=== PATIENT | male | born 1950 | race Caucasian/White ===

== ENCOUNTER 2019-05-21 12:24 | Outpatient (CLI) | payer MEDICARE, SELFPAY ==
--- NOTE | ~2019-05-21 | CT_ITS ---
EXAMINATION: CT abdomen pelvis wo con DATE: 05/21/2019 13:08 INDICATION: Left abdominal pain. TECHNIQUE: Computed tomography (CT) of the abdomen and pelvis was performed without intravenous contr ast. Automated exposure control and iterative reconstruction technique were employed. The dose-length product was 947.59 mGy-cm. COMPARISON: CT abdomen and pelvis 04/01/2018, 07/13/2010 FINDINGS: The visualized portions of the lung bases demonstrate mild atelectasis. No pleural effusion . The heart size is normal. No pericardial effusion. There is diffuse hepatic steatosis. The gallblad haleigh, spleen, pancreas, adrenal glands, and kidneys are normal. There is no urolithiasis. There are bi lateral inguinal hernias containing fat. There are changes of prostatectomy and pelvic lymph node dis section. There is diverticulosis of the colon without evidence of diverticulitis. There are no dilate d loops of bowel. The appendix is normal. There is no free intraperitoneal fluid. There is mild perip ortal and left para-aortic lymphadenopathy. For example, a left para-aortic lymph node measures 15 x 11 mm. There are chronic bilateral L5 pars defects. There is 4 mm anterolisthesis of L5 on S1. There is moderate lumbar spondylosis. There are bridging endplate osteophytes at multiple levels in the tho racic spine, consistent with diffuse idiopathic skeletal hyperostosis (DISH). IMPRESSION: 1. Mild periportal and retroperitoneal lymphadenopathy, stable from 07/13/2010, likely reactive. Reviewed, dictated and finalized at location A. [employer]PERATOR IMPRESSION: 1. Mild periportal and retroperitoneal lymphadenopathy, stable from 07/13/2010, l ikely reactive.
[2019-05-21 13:31] LABS: Basophils Percent Auto 0.6 % (0.2-1.2); Eosinophils Absolute Auto 0.6 K/mm3 (0-0.3); Eosinophils Percent Auto 8.6 % (0-4.4); Hematocrit 39.2 % (42.0-52.0); Hemoglobin 13.4 g/dL (14.0-18.0); Immature Granulocyte Absolute 0.02 K/mm3 (0.00-0.031); Immature Granulocyte Percent A 0.3 % (0-0.5); Lymphocytes Absolute Auto 1.38 K/mm3 (0.9-3.2); Lymphocytes Percent Auto 21.3 % (18.3-44.2); Mean Corpuscular HGB Conc 34.2 g/dl (32-36); Mean Corpuscular Hemoglobin 29.8 pg (26-34); Mean Corpuscular Volume 87.1 fl (80-100); Mean Platelet Volume 10.7 fl (7.4-10.4); Monocytes Absolute Auto 0.5 K/mm3 (0.1-0.6); Monocytes Percent Auto 8.2 % (2.6-8.5); Platelet Count Result 133 k/mm3 (150-375); Red Cell Distribution Width 12.5 % (11.5-14.5); White Blood Count 6.5 K/mm3 (4.5-10.0)
[2019-05-21 13:39] LABS: Add Urine Microscopic? YES; Appearance Urine Clear (Clear); Bilirubin Urine Negative (Negative); Blood Urine Negative (Negative); Color Urine Yellow (Yellow); Glucose Urine UA 3+ mg/dL (Negative); Ketones Urine Trace mg/dL (Negative); Leukocyte Esterase Ur Negative LEU/UL (Negative); Mucus Urine Rare /lpf; Nitrate Urine Negative (Negative); Protein Urine Negative (Negative); RBC Urine 0-2 /hpf (0-2); Specific Grav Ur 1.021 (1.001-1.035); Squamous Epithelial Cell Urine Rare /hpf (Few); Urobilinogen Urine Negative mg/dL (<2.0); WBC Urine 0-3 /hpf
[2019-05-21 13:59] LABS: Alanine Aminotransferase 52 U/L (4-50); Albumin Level 4.5 g/dL (3.5-5.1); Alkaline Phosphatase 56 U/L (38-126); Amylase 57 U/L (30-110); Aspartate Amino Transferase 44 U/L (17-59); Bilirubin,Total 0.8 mg/dL (0.2-1.3); Blood Urea Nitrogen 33 mg/dL (9-20); Calcium 9.8 mg/dL (8.4-10.2); Carbon Dioxide 22 mmol/L (22-30); Chloride 97 mmol/L (98-107); Estimated Glomerular Filt Rate 50; Glucose 244 mg/dL (75-110); Lipase 87 U/L (23-300); Potassium 4.6 mmol/L (3.4-5.0); Sodium 138 mmol/L (137-145)
[2019-05-21 14:10] LABS: Hemoglobin A1C 9.1 % (<5.7)
== END 2019-05-21 12:25 | disposition home or self-care (01) ==
DX: R10.9 Unspecified abdominal pain (principal); Z85.46 Personal history of malignant neoplasm of prostate; K57.90 Diverticulosis of intestine, part unspecified, without perforation or abscess without bleeding; E11.9 Type 2 diabetes mellitus without complications
CPT/HCPCS: 36415; 74176; 80053; 81001; 82150; 83036; 83690; 85025

== ENCOUNTER 2021-09-28 11:45 | Outpatient (CLI) | payer MEDICARE, SELFPAY ==
--- NOTE | ~2021-09-28 | XR_ITS ---
XR lumbar spine min 4V DATE: 09/28/2021 12:07 INDICATION: Left chronic numbness, skin anesthesia TECHNIQUE: AP, lateral, coned lateral lumbosacral views and bilateral oblique views COMPARISON: May 21, 2019 CT abdomen pelvis FINDINGS: Bilateral L5 pars interarticularis defects with grade 1 anterolisthesis at L5-S1. Diffuse idiopathic skeletal hyperostosis of the lower thoracic and lumbar spine. There is mild to mod erate degenerative disc disease of the lumbar spine, greatest at L1-2. The sacroiliac joints are intact, with degenerative change. Abdominal aortic calcification, without apparent aneurysm. Bilateral pelvic surgical clips likely due to prostatectomy and bilateral pelvic sidewall lymph node dissection. IMPRESSION: Bilateral L5 pars interarticular is defects with associated grade 1 anterolisthesis at L5 -S1 Multilevel degenerative disc disease Diffuse idiopathic skeletal hyperostosis of the thoracolumbar spine Probable prostatectomy and bilateral pelvic sidewall lymph node dissection Reviewed, dictated and finalized at location A. IMPRESSION: Bilateral L5 pars interarticular is defects with associated grade 1 anterolisthesis at L5-S1 Multilevel degenerative disc disease Diffuse idiopathic skeletal hyperostosis of the thoracolumbar spine Probable prostatectomy and bilateral pelvic sidewall lymph node dissection
--- NOTE | ~2021-09-28 | XR_ITS ---
EXAMINATION: XR sacrum coccyx min 2V DATE: 09/28/2021 12:07 INDICATION: Anesthesia of skin and left-sided numbness. TECHNIQUE: AP, angled AP and lateral views of the sacrum and coccyx were obtained. COMPARISON: None. FINDINGS: L5 spondylolysis with lucent pars interarticularis defects and 4 mm anterolisthesis L5 on S1. No frac ture. Mild to moderate lower lumbar spondylosis and mild to moderate bilateral hip osteoarthritis wit h anterosuperior predominant nonuniform joint space narrowing. Mild bilateral sacroiliac osteoarthrit is. Multiple surgical clips in the pelvis suggesting prior prostatectomy and bilateral pelvic lymph n ode dissection. IMPRESSION: 1. L5 spondylolysis with 4 mm anterolisthesis L5 on S1. Reviewed, dictated and finalized at location B.
== END 2021-09-28 11:46 | disposition home or self-care (01) ==
PROVIDERS: PCP Family Medicine; Visit Provider Physician Assistant Medical
DX: R20.0 Anesthesia of skin (principal); M47.896 Other spondylosis, lumbar region; M51.36 Other intervertebral disc degeneration, lumbar region
CPT/HCPCS: 72110; 72220

== ENCOUNTER 2021-12-26 14:18 | Outpatient (CLI) | payer MEDICARE, SELFPAY ==
--- NOTE | ~2021-12-26 | MR_ITS ---
EXAMINATION: MR lumbar spine wo con DATE: 12/26/2021 15:04 INDICATION: Back pain. TECHNIQUE: Magnetic resonance imaging (MRI) of the lumbar spine was performed without intravenous con trast. Sequences included sagittal T2-weighted FSE, sagittal T2-weighted FS FSE, sagittal T1-weighted FSE, and axial T2-weighted FSE. COMPARISON: Lumbar spine radiograph 09/28/2021 FINDINGS: There is 6 degrees dextrocurvature of lumbar spine. There are chronic bilateral L5 pars def ects. There is 3 mm retrolisthesis of L4 on L5 and 6 mm anterolisthesis of L5 on S1. There is mild ch ronic anterior wedging of T11 vertebral body. There is moderately decreased disc height at L4-L5 and mildly decreased disc height at L5-S1. The distal spinal cord signal intensity is normal. The conus m edullaris is at T12. The following disc levels are specifically discussed: L1-L2: The disc does not extend beyond the endplate margin. There is mild bilateral facet joint osteo arthritis. There is no neural foraminal stenosis. There is no central canal stenosis. L2-L3: The disc does not extend beyond the endplate margin. There is mild bilateral facet joint osteo arthritis. There is no neural foraminal stenosis. There is no central canal stenosis. L3-L4: The disc does not extend beyond the endplate margin. There is severe bilateral facet joint ost eoarthritis. There is no neural foraminal stenosis. There is no central canal stenosis. L4-L5: The disc is bulging and has an annular fissure. There is mild bilateral facet joint osteoarthr itis. There is moderate bilateral neural foraminal stenosis. There is mild central canal stenosis. L5-S1: The disc is bulging. There is severe bilateral facet joint osteoarthritis. There is moderate b ilateral neural foraminal stenosis. There is mild central canal stenosis. IMPRESSION: 1. Moderate lumbar spondylosis. 2. Chronic bilateral L5 pars defects with grade 1 anterolisthesis of L5 on S1. Reviewed, dictated and finalized at location A.
== END 2021-12-26 14:19 | disposition home or self-care (01) ==
PROVIDERS: PCP Family Medicine; Visit Provider Neurological Surgery
DX: M47.817 Spondylosis without myelopathy or radiculopathy, lumbosacral region (principal); M48.07 Spinal stenosis, lumbosacral region
CPT/HCPCS: 72148

== ENCOUNTER 2022-01-22 09:55 | Outpatient (CLI) | payer MEDICARE, SELFPAY ==
--- NOTE | 2022-01-22 11:30 | NEURO_ITS ---
Impression: # Complains of numbness/pain in upper extremities. 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 # Superimposed bilateral Carpal Tunnel Syndrome. 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 # Needle/EMG exam neurogenic in distal muscles; Superimposed cervical radiculopathy cannot be ruled out. Nerve Conduction Studies Anti Sensory Summary Table Stim Site NR Peak (ms) P-T Amp (?V) Site1 Site2 Delta-P (ms) Dist (cm) Luiz (m/s) Left Median Anti Sensory (2-3nd Digit) Wrist 3.6 29.8 Wrist 2-3nd Digit 3.6 14.0 39 Wrist 4.0 14.0 Wrist 2-3nd Digit 3.6 14.0 39 Right Median Anti Sensory (2-3nd Digit) Wrist 4.6 19.4 Wrist 2-3nd Digit 4.6 14.0 30 Wrist 4.4 27.9 Wrist 2-3nd Digit 4.6 14.0 30 Left Radial Anti Sensory (Base 1st Digit) Wrist 2.5 18.1 Wrist Base 1st Digit 2.5 0.0 Right Radial Anti Sensory (Base 1st Digit) Wrist 2.5 12.2 Wrist Base 1st Digit 2.5 0.0 Left Ulnar Anti Sensory (5th Digit) Wrist 3.5 18.0 Wrist 5th Digit 3.5 14.0 40 Right Ulnar Anti Sensory (5th Digit) Wrist 3.5 17.4 Wrist 5th Digit 3.5 14.0 40 Motor Summary Table Stim Site NR Onset (ms) O-P Amp (mV) Site1 Site2 Delta-0 (ms) Dist (cm) Luiz (m/s) Left Median Motor (Abd Poll Brev) Wrist 5.9 1.2 Elbow Wrist 8.2 30.0 37 Elbow 14.1 1.8 Right Median Motor (Abd Poll Brev) Wrist 5.3 1.2 Elbow Wrist 6.7 28.0 42 Elbow 12.0 0.9 Left Ulnar Motor (Abd Dig Minimi) Wrist 4.3 3.8 A Elbow Wrist 10.0 33.0 33 A Elbow 14.3 1.5 B Elbow Wrist 5.6 23.0 41 B Elbow 9.9 3.2 Right Ulnar Motor (Abd Dig Minimi) Wrist 4.2 5.1 A Elbow Wrist 8.3 31.0 37 A Elbow 12.5 3.3 B Elbow Wrist 4.6 21.0 46 B Elbow 8.8 3.3 F Wave Studies NR F-Lat (ms) L-R F-Lat (ms) Left Median (Mrkrs) (Abd Poll Brev) 37.63 1.05 Right Median (Mrkrs) (Abd Poll Brev) 36.58 1.05 Left Ulnar (Mrkrs) (Abd Dig Min) 35.68 0.44 Right Ulnar (Mrkrs) (Abd Dig Min) 36.13 0.44 EMG Side Muscle Nerve Root Ins Act Fibs Amp Dur Recrt Comment Right 1stDorInt Ulnar C8-T1 Nml Nml Incr Nml Reduced Right Ext Indicis Radial (Post Int) C7-8 Nml Nml Nml Nml Nml Right Ext Digitorum Radial (Post Int) C7-8 Nml Nml Incr Nml Reduced Right BrachioRad Radial C5-6 Nml Nml Nml Nml Nml Right PronatorTeres Median C6-7 Nml Nml Nml Nml Nml Right Abd Poll Brev Median C8-T1 Nml Nml Incr Nml Reduced Left 1stDorInt Ulnar C8-T1 Nml Nml Incr Nml Reduced Left Ext Indicis Radial (Post Int) C7-8 Nml Nml Nml Nml Nml Left Ext Digitorum Radial (Post Int) C7-8 Nml Nml Incr Nml Reduced Left BrachioRad Radial C5-6 Nml Nml Nml Nml Nml Left PronatorTeres Median C6-7 Nml Nml Nml Nml Nml Left Abd Poll Brev Median C8-T1 Nml Nml Incr Nml Reduced Right ABD Dig Min Ulnar C8-T1 Nml Nml Incr Nml Reduced Left ABD Dig Min Ulnar C8-T1 Nml Nml Incr Nml Reduced MTDD
== END 2022-01-22 09:56 | disposition home or self-care (01) ==
LOC: ANHNEURO 09:56
PROVIDERS: PCP Family Medicine; Visit Provider Neurological Surgery
DX: R20.2 Paresthesia of skin (principal); G56.03 Carpal tunnel syndrome, bilateral upper limbs; G56.23 Lesion of ulnar nerve, bilateral upper limbs; G62.9 Polyneuropathy, unspecified
CPT/HCPCS: 95886; 95911

== ENCOUNTER 2022-12-25 14:37 | Outpatient (CLI) | payer MEDICARE, SELFPAY ==
[2022-12-25 15:23] LABS: Anion Gap 13 mmol/L (8-16); Blood Urea Nitrogen 30 mg/dL (9-20); Calcium 9.6 mg/dL (8.4-10.2); Carbon Dioxide 20 mmol/L (22-30); Chloride 103 mmol/L (98-107); Estimated Glomerular Filt Rate 54; Glucose 228 mg/dL (65-110); Potassium 4.8 mmol/L (3.4-5.0); Sodium 136 mmol/L (137-145)
[2022-12-27 10:53] LABS: Beta-Hydroxybutyrate/Acetoacetate 0.18 mmol/L (0.02-0.27)
== END 2022-12-25 14:38 | disposition home or self-care (01) ==
LOC: ANHLAB 14:39
PROVIDERS: PCP Family Medicine; Visit Provider Family Medicine
DX: E87.29 Other acidosis (principal)
CPT/HCPCS: 36415; 80048; 82010

== ENCOUNTER 2023-01-09 08:09 | Outpatient (CLI) | payer MEDICARE, SELFPAY ==
[2023-01-09 08:43] LABS: Alveolar/Arterial O2 Gradient 27.4 mmHg; Base Excess ABG -2.6 mEq/l (+/-2.0); Fractional Inspired Oxygen 21 %; HCO3 ABG 21.9 mEq/l (22.0-26.0); Oxygen Content ABG 17.3 %vol (16.0-22.0); Oxygen Saturation ABG 95.6 % (95.0-100.0); Oxyhemoglobin 93.9 % THb (90.0-100.0); PCO2 ABG 36.8 mmHg (35.0-45.0); PO2 ABG 78.3 mmHg (80.0-100.0); PO2 FiO2 Ratio Arterial Blood 3.73 %; Total Hemoglobin 13.1 g/dL (12.0-18.0); pH ABG 7.392 (7.350-7.450)
[2023-01-09 08:44] LABS: Device ROOM AIR; Modified Allen's Test Pass; Site Drawn LEFT RADIAL
== END 2023-01-09 08:10 | disposition home or self-care (01) ==
LOC: ANHPFT 08:11
PROVIDERS: PCP Family Medicine; Visit Provider Family Medicine
DX: E87.29 Other acidosis (principal)
CPT/HCPCS: 36600; 82805

== ENCOUNTER 2023-03-03 13:12 | Emergency (ER) | payer MEDICARE, SELFPAY ==
[2023-03-03 13:36] VITALS: BP 139/86; PULSE 103; RESP 16; TEMP 37.1; O2SAT 99
--- NOTE | 2023-03-03 14:24 | ED.URI ---
HPI - URI/Sore Throat General Chief Complaint: Upper Respiratory Infection Stated Complaint: Sore Throat Time Seen by Provider: 03/03/23 14:24 Source: patient, family, RN notes reviewed and old records reviewed Mode of arrival: ambulatory Limitations: no limitations History of Present Illness HPI Narrative: 72 year old male accompanied by with complaints of sore throat and swelling to the anterior lateral aspects of bilateral jaws especially the right side with firmness of tissue noted since Friday morning with increased symptoms. Patient reports history of previous episode of similar symptoms but not as pronounced which resolved on its own. Patient reports that he quit taking Semaglutide 3 weeks ago due to nausea and vomiting, denies any history of thyroid problems. Patient does have some mild swelling under his tongue noted is able to swallow without difficulty and denies any shortness of breath. Right side of neck anterior lateral jaw region is larger than left. MD elicited complaint: sore throat and other (swelling with firm tissue to bilateral anterior lateral jaw areas.right greater than left) Onset (ago): day(s) (3) Pain scale (0-10): 2 Able to tolerate fluids by mouth: Yes Treatments prior to arrival: none Related Data Home Medications Medication Instructions Recorded Confirmed escitalopram oxalate 10 mg tablet 10 mg PO DAILY 09/28/21 03/03/23 Allergies Allergy/AdvReac Type Severity Reaction Status Date / Time diatrizoate meglumine Allergy Intermediate Unknown Verified 03/04/23 05:58 Contrast Media Allergy Unknown Hives / Uncoded 03/04/23 05:58 Red Face Review of Systems Review of Systems: CONSTITUTIONAL: Denies fever, chills, or sweats. EYES: Denies visual changes, redness, or discharge. ENT: Denies rhinorrhea, congestion,positive for sore throat, or otalgia.submandibular swelling bilaterally right greater than left CARDIOVASCULAR: Denies chest pain, palpitations, or edema. RESPIRATORY: Denies cough or dyspnea. GASTROINTESTINAL: Denies abdominal pain, nausea, vomiting, or diarrhea. GENITOURINARY: Denies dysuria or hematuria. SKIN: Denies rash or itching. MUSCULOSKELETAL: Denies back pain, joint pain, or myalgia. NEUROLOGIC: Denies headache, numbness, or weakness. PSYCHIATRIC: positive for history of anxiety or depression. All systems reviewed & are unremarkable except as noted in HPI and below PMFSH Past Medical History Medical History Degenerative disk disease Diabetes type 2, controlled Diverticulosis History of diverticulitis Hypertension Overweight (BMI 25.0-29.9) Paresthesia and pain of both upper extremities Saddle anesthesia Surgical History Surgical History History of carpal tunnel release Family History Family History Father Family history of diabetes mellitus in first degree relative Patient's father is Other Hypertension Social History Social History Smoking status: Former smoker Second hand tobacco smoke exposure: No Alcohol intake: current Drinks per week: 1 Alcohol use details: per week Substance use: never Substance use type: does not use Lack of Transportation: No Lack of Food: Never True Current Housing: I Have Housing Concerned About Future Housing: No Difficulty Paying Gas/Electric Bills: No Difficulty Paying for Meds: No Currently Unemployed: No Education: Associate Degree Difficulty w/ Childcare or Family Care: No Living arrangements: with family Gender identity (if verbalized by the patient): Male Sexual Orientation (if Verbalized by the Patient): Straight or Heterosexual Spiritual care concerns: No Agree to blood products: Yes Comments At time of signature, agree with nu
== END 2023-03-03 14:35 | disposition short-term general hospital (02) ==
PROVIDERS: Emergency Provider Registered Nurse; PCP Family Medicine
DX: R59.0 Localized enlarged lymph nodes (principal); E11.9 Type 2 diabetes mellitus without complications; I10 Essential (primary) hypertension; Z79.899 Other long term (current) drug therapy; Z87.891 Personal history of nicotine dependence
CPT/HCPCS: 87081; 87880; 99213; G0463

== ENCOUNTER 2023-03-04 05:26 | Emergency (ER) | payer MEDICARE, SELFPAY ==
[2023-03-04] VITALS (11 sets, daily range): BP systolic 147–179; BP diastolic 83–95; PULSE 84–92; RESP 16–20; TEMP 37.1; O2SAT 93–99
--- NOTE | ~2023-03-04 | CT_ITS ---
EXAMINATION: CT soft tissue neck wo con DATE: 03/04/2023 08:47 INDICATION: Right-sided neck swelling. Sore throat. TECHNIQUE: Computed tomography (CT) of the neck was performed without intravenous contrast. Automated exposure control and iterative reconstruction technique were employed. The dose-length product was 5 32.86 mGy-cm. COMPARISON: None FINDINGS: There is a lipoma in right sternocleidomastoid muscle. There is a multinodular goiter that extends into the superior mediastinum. There are calcifications in the palatine tonsils. No peritonsi llar abscess. There is fat stranding in the submandibular space. There is asymmetric enlargement of r ight submandibular gland. There is a 2 mm sialolith in the right anterior floor of mouth in the expec dean area of the duct for right submandibular gland. There are no pathologically enlarged lymph nodes. The mastoid air cells are normal. The paranasal sinuses are clear. There is moderate cervical spondy losis. IMPRESSION: 1. Sialadenitis involving right submandibular gland. 2 mm sialolith in the duct for right submandibul ar gland. Reviewed, dictated and finalized at location A. [employer] IMPRESSION: 1. Sialadenitis involving right submandibular gland. 2 mm sialolith in the duct for right submandibular gland.
--- NOTE | 2023-03-04 08:20 | ED.GENADULT ---
HPI - General Adult General Chief complaint: Unspecified Stated complaint: swelling to right side of neck Time Seen by Provider: 03/04/23 07:28 History of Present Illness HPI narrative: 72-year-old male presents to the emergency department for evaluation right throat swelling. Patient does wear CPAP at night time and feel that his CPAP became dislodged and he woke up with a sore throat. Patient states sometimes happen and cause uvular hydrops. patient noticed the right-sided neck swelling on Friday and it has continued to worsen. Patient presented to urgent care yesterday and he was referred to the emergency department. Related Data Home Medications Medication Instructions Recorded Confirmed escitalopram oxalate 10 mg tablet 10 mg PO DAILY 09/28/21 03/03/23 Allergies Allergy/AdvReac Type Severity Reaction Status Date / Time diatrizoate meglumine Allergy Intermediate Unknown Verified 03/04/23 05:58 Contrast Media Allergy Unknown Hives / Uncoded 03/04/23 05:58 Red Face Review of Systems Review of Systems: All systems reviewed & are unremarkable except as noted in HPI and below PMFSH Past Medical History Medical History Degenerative disk disease Diabetes type 2, controlled Diverticulosis History of diverticulitis Hypertension Overweight (BMI 25.0-29.9) Paresthesia and pain of both upper extremities Saddle anesthesia Surgical History Surgical History History of carpal tunnel release Family History Family History Father Family history of diabetes mellitus in first degree relative Patient's father is Other Hypertension Social History Social History Smoking status: Former smoker Second hand tobacco smoke exposure: No Alcohol intake: current Drinks per week: 1 Alcohol use details: per week Substance use: never Substance use type: does not use Lack of Transportation: No Lack of Food: Never True Current Housing: I Have Housing Concerned About Future Housing: No Difficulty Paying Gas/Electric Bills: No Difficulty Paying for Meds: No Currently Unemployed: No Education: Associate Degree Difficulty w/ Childcare or Family Care: No Living arrangements: with family Gender identity (if verbalized by the patient): Male Sexual Orientation (if Verbalized by the Patient): Straight or Heterosexual Spiritual care concerns: No Agree to blood products: Yes Exam Narrative: APPEARANCE: Well appearing, no pain, no distress, well-nourished. HEAD: normocephalic, atraumatic. EYES: PERRLA/EOMI, conjunctivae clear. NOSE: Normal no drainage EARS:TMS clear with good light reflex. THROAT: Pharynx clear, no exudate. Normal posterior pharynx some submandibular swelling NECK: Right sided lymphadenopathy and neck swelling. RESPIRATORY: Airway patent, respirations nonlabored. Clear to auscultation bilaterally, no rales, rhonchi, wheezing. CARDIOVASCULAR: Regular rate and rhythm without murmurs rubs or gallops. ABDOMINAL: Soft, nontender, nondistended, normal bowel sounds MUSCULOSKELETAL: Moves all extremities. Strength/ROM intact, No edema, No calf tenderness. NEURO: Alert. Cranial nerves II through XII intact. SKIN: Warm, dry. Normal Color Course Course Emergency Course: 72-year-old male presents emergency department for evaluation of some right-sided neck swelling. Patient is afebrile with no leukocytosis and a stable hemoglobin. CT did show evidence of sialadenitis. patient was updated on the treatment plan. Patient was started on antibiotics and provide follow-up with ENT. All questions and concerns were addressed patient was comfortable with plan for discharge and close follow-up. Vital Signs Vital signs: Vital Signs
[2023-03-04 08:21] LABS: Basophils Percent Auto 0.4 % (0.2-1.2); Eosinophils Absolute Auto 0.3 K/mm3 (0-0.3); Eosinophils Percent Auto 3.5 % (0-4.4); Hematocrit 35.9 % (42.0-52.0); Hemoglobin 12.3 g/dL (14.0-18.0); Immature Granulocyte Absolute 0.03 K/mm3 (0.00-0.031); Immature Granulocyte Percent A 0.3 % (0-0.5); Immature Platelet Fraction Pct 3.9 % (0.9-11.2); Lymphocytes Absolute Auto 1.33 K/mm3 (0.9-3.2); Lymphocytes Percent Auto 14.4 % (18.3-44.2); Mean Corpuscular HGB Conc 34.3 g/dl (32-36); Mean Corpuscular Hemoglobin 29.2 pg (26-34); Mean Corpuscular Volume 85.3 fl (80-100); Mean Platelet Volume 10.8 fl (7.4-10.4); Monocytes Absolute Auto 0.8 K/mm3 (0.1-0.6); Monocytes Percent Auto 8.5 % (2.6-8.5); Neutrophils Absolute Auto 6.8 K/mm3 (1.3-6.7); Neutrophils Percent Auto 72.9 % (45.5-73.1); Platelet Count Result 135 k/mm3 (150-375); Red Blood Count 4.21 M/mm3 (4.6-6.20); Red Cell Distribution Width 13.2 % (11.5-14.5); White Blood Count 9.3 K/mm3 (4.5-10.0)
[2023-03-04] MEDS: HYDROmorphone HCL INJ (*CRX) 1 MG/ML SYR 0.5 MG IV PUSH (08:25)
[2023-03-04 08:30] LABS: Lactic Acid Reflex 2.2 mmol/L (0.7-2.0)
[2023-03-04 08:32] LABS: Alanine Aminotransferase 31 U/L (6-50); Albumin Level 4.4 g/dL (3.5-5.1); Alkaline Phosphatase 57 U/L (38-126); Anion Gap 10 mmol/L (8-16); Aspartate Amino Transferase 27 U/L (17-59); Bilirubin,Total 1.3 mg/dL (0.2-1.3); Blood Urea Nitrogen 29 mg/dL (9-20); Calcium 9.7 mg/dL (8.4-10.2); Carbon Dioxide 26 mmol/L (22-30); Chloride 99 mmol/L (98-107); Estimated CRCL calculation 40 ml/min; Estimated Glomerular Filt Rate 46; Glucose 219 mg/dL (65-110); Sodium 135 mmol/L (137-145)
[2023-03-04 08:34] LABS: INR 1.1; Prothrombin Time 14.2 Seconds (11.1-14.7)
[2023-03-04 08:35] LABS: Partial Thromboplastin Time 32.5 SECONDS (22.3-36.8)
[2023-03-04 08:41] LABS: Strep Group A RT-PCR NOT DETECTED (Negative)
[2023-03-04 08:53] LABS: Influenza A QL RT-PCR Negative (Negative); Influenza B QL RT-PCR Negative (Negative); RSV RNA, RT-PCR Negative (Negative); SARS-CoV-2 RNA PCR Negative (Negative)
[2023-03-04] MEDS: SODIUM CHLORIDE 0.9% IV 1,000 ML 999 ML IV CONT (08:59)
[2023-03-04 11:14] LABS: Reflex Lactic Acid Yes or No Add Lactic
== END 2023-03-04 09:28 | disposition home or self-care (01) ==
PROVIDERS: Emergency Provider Emergency Medicine; PCP Family Medicine
DX: K11.20 Sialoadenitis, unspecified (principal); Z20.822 Contact with and (suspected) exposure to COVID-19; E11.9 Type 2 diabetes mellitus without complications; I10 Essential (primary) hypertension; G47.30 Sleep apnea, unspecified; Z87.891 Personal history of nicotine dependence; Z79.85 Long-term (current) use of injectable non-insulin antidiabetic drugs; Z79.4 Long term (current) use of insulin; Z79.84 Long term (current) use of oral hypoglycemic drugs
CPT/HCPCS: 36415; 70490; 80053; 83605; 85025; 85055; 85610; 85730; 87637; 87651; 96374; 96375; 99284; A9270; J1100; J1170; J7030

== ENCOUNTER 2023-09-16 11:30 | Emergency (ER) | payer MEDICARE, SELFPAY ==
--- NOTE | 2023-09-16 11:36 | ED.SKABFB ---
HPI - Skin/Abscess/Foreign Bdy General Chief complaint: Skin/Abscess/Foreign Body Stated complaint: INFECTION ON ABD S/P SURGERY Time Seen by Provider: 09/16/23 11:41 Source: patient, RN notes reviewed and old records reviewed Mode of arrival: ambulatory Limitations: no limitations History of Present Illness HPI narrative: 73-year-old male with history of diabetes, hypertension, status post abdominal surgery with LORNA drain placement in July presents with redness and tenderness to the abdomen, surgical site. Patient reports that he had surgery in May in [place]. Return to the local area in June had a surgery at [place]. Patient states he has had multiple drains in tubes in abdomen Patient also states he was concerned because his blood sugars were over 400 this morning. States the pain is getting more and more severe. Onset (ago): hour(s) Treatments prior to arrival: none Related Data Home Medications Medication Instructions Recorded Confirmed insulin lispro 100 unit/mL subcut 09/16/23 09/16/23 subcutaneous pen (Humalog KwikPen (U-100) Insulin) Allergies Allergy/AdvReac Type Severity Reaction Status Date / Time diatrizoate meglumine Allergy Intermediate Unknown Verified 09/16/23 11:37 Contrast Media Allergy Unknown Hives / Uncoded 09/16/23 11:37 Red Face Review of Systems Review of Systems: All systems reviewed & are unremarkable except as noted in HPI and below Constitutional: Constitutional: Reports no additional constitutional complaints Eyes: Eyes: Reports no additional eye complaints ENT: Reports system reviewed and no additional complaints, except as documented Cardiovascular: Cardiovascular: Reports no additional cardiovascular complaints, Denies chest pain and Denies dyspnea Respiratory: Respiratory: Reports no additional respiratory complaints, Denies chest congestion, Denies cough and Denies dyspnea Gastrointestinal: Gastrointestinal: Reports no additional gastrointestinal complaints, Denies abdominal pain, Denies nausea and Denies vomiting Musculoskeletal: Musculoskeletal: Reports no additional musculoskeletal complaints Integumentary/Breasts: Skin/Breast: Reports as per HPI Neurologic: Reports system reviewed and no additional complaints, except as documented Psychiatric: Psychiatric: Reports no additional psychiatric complaints Allergic/Immunologic: Allergic/Immunologic: Reports no additional allergic/immunologic complaints [facility] Past Medical History Medical History (Updated 09/16/23 @ 12:04 by Dionne Chan APRN) Abdominal abscess Abdominal mass Back pain Degenerative disk disease Diabetes type 2, controlled Diverticulosis History of diverticulitis Hypertension Overweight (BMI 25.0-29.9) Paresthesia and pain of both upper extremities Saddle anesthesia Surgical History Surgical History History of carpal tunnel release Family History Family History Father Family history of diabetes mellitus in first degree relative Patient's father is Other Hypertension Social History Social History Smoking status: Former smoker Second hand tobacco smoke exposure: No Alcohol intake: current Drinks per week: 1 Alcohol use details: per week Substance use: never Substance use type: does not use Lack of Transportation: No Lack of Food: Never True Current Housing: I Have Housing Concerned About Future Housing: No Difficulty Paying Gas/Electric Bills: No Difficulty Paying for Meds: No Currently Unemployed: No Education: Associate Degree Difficulty w/ Childcare or Family Care: No Living arrangements: with family Gender identity (if verbalized by the patient): Male Sexual Orientation (if Verbalized by the Patient): Straight or Heterosexual Spiritual care concerns
[2023-09-16 11:41] VITALS: BP 139/73; PULSE 84; RESP 16; TEMP 36.7; O2SAT 100
--- NOTE | 2023-09-16 12:31 | PC.NURSE ---
1219 Patient phoned in to the facility and reports he will be going to [facility] for further evaluation as that is where he had surgery.
== END 2023-09-16 11:57 | disposition left against medical advice (07) ==
PROVIDERS: Emergency Provider Nurse Practitioner; PCP Family Medicine
DX: T81.40XA Infection following a procedure, unspecified, initial encounter (principal); Z87.891 Personal history of nicotine dependence; E11.9 Type 2 diabetes mellitus without complications; Z79.4 Long term (current) use of insulin; I10 Essential (primary) hypertension
CPT/HCPCS: 99211; G0463

== ENCOUNTER 2023-10-01 10:11 | Outpatient (CLI) | payer MEDICARE, SELFPAY ==
--- NOTE | ~2023-10-01 | XR_ITS ---
EXAMINATION: XR hand RT min 3V DATE: 10/01/2023 10:32 INDICATION: Unilateral primary osteoarthritis of right first carpometacarpal joint. TECHNIQUE: 3 views of right hand were obtained. COMPARISON: None. FINDINGS: Bone alignment is normal. No fracture. There is severe osteoarthritis of first carpometacar pal joint and mild osteoarthritis of some of the metacarpophalangeal joints and interphalangeal joint s. There is moderate osteoarthritis of first interphalangeal joint and third-fifth distal interphalan geal joints. IMPRESSION: 1. Polyarticular osteoarthritis. Reviewed, dictated and finalized at location A.
== END 2023-10-01 10:12 | disposition home or self-care (01) ==
LOC: ANHIMG 10:17
PROVIDERS: PCP Family Medicine; Visit Provider Plastic Surgery
DX: M18.11 Unilateral primary osteoarthritis of first carpometacarpal joint, right hand (principal)
CPT/HCPCS: 73130

== ENCOUNTER 2024-03-23 13:08 | Outpatient (CLI) | payer MEDICARE, SELFPAY ==
--- NOTE | 2024-03-23 14:15 | NEURO_ITS ---
Impression: # Complains of numbness and weakness in right hand. Known diabetic. ? # Right ulnar neuropathy across the elbow. ? # Mildly abnormal Needle/EMG exam in right 1st DI and ADM. ? # Also has underlying neuropathy of axonal type. Nerve Conduction Studies Anti Sensory Summary Table ?Stim Site NR Peak (ms) P-T Amp (?V) Site1 Site2 Delta-P (ms) Dist (cm) Luiz (m/s) Right Median Anti Sensory (2-3nd Digit) Wrist ? 3.7 9.1 Wrist 2-3nd Digit 3.7 14.0 38 Wrist ? 3.7 11.4 Wrist 2-3nd Digit 3.7 14.0 38 Right Radial Anti Sensory (Base 1st Digit) Wrist ? 2.9 19.8 Wrist Base 1st Digit 2.9 0.0 Right Ulnar Anti Sensory (5th Digit) Wrist ? 3.1 19.8 Wrist 5th Digit 3.1 14.0 45 Motor Summary Table ?Stim Site NR Onset (ms) O-P Amp (mV) Site1 Site2 Delta-0 (ms) Dist (cm) Luiz (m/s) Right Median Motor (Abd Poll Brev) Wrist ? 4.0 1.4 Elbow Wrist 7.8 31.0 40 Elbow ? 11.8 1.2 Right Ulnar Motor (Abd Dig Minimi) Wrist ? 3.4 4.4 A Elbow Wrist 8.8 31.0 35 A Elbow ? 12.2 2.3 B Elbow Wrist 5.4 20.0 37 B Elbow ? 8.8 2.1 F Wave Studies ?NR F-Lat (ms) L-R F-Lat (ms) Right Median (Mrkrs) (Abd Poll Brev) ? 36.42 Right Ulnar (Mrkrs) (Abd Dig Min) ? 38.19 EMG ?Side Muscle Nerve Root Ins Act Fibs Amp Dur Recrt Comment Right 1stDorInt Ulnar C8-T1 Nml Nml Nml >12ms +2 Right Ext Indicis Radial (Post Int) C7-8 Nml Nml Nml Nml Nml Right Ext Digitorum Radial (Post Int) C7-8 Nml Nml Nml Nml Nml Right BrachioRad Radial C5-6 Nml Nml Nml Nml Nml Right PronatorTeres Median C6-7 Nml Nml Nml Nml Nml Right Abd Poll Brev Median C8-T1 Nml Nml Nml Nml Nml Right ABD Dig Min Ulnar C8-T1 Nml Nml Nml >12ms +1 MTDD
== END 2024-03-23 13:09 | disposition home or self-care (01) ==
LOC: ANHNEURO 13:09
PROVIDERS: PCP Family Medicine; Visit Provider Plastic Surgery
DX: G56.01 Carpal tunnel syndrome, right upper limb (principal); G56.21 Lesion of ulnar nerve, right upper limb; M18.11 Unilateral primary osteoarthritis of first carpometacarpal joint, right hand; R94.131 Abnormal electromyogram [EMG]
CPT/HCPCS: 95886; 95909

== ENCOUNTER 2024-07-17 08:29 | Emergency (ER) | payer MEDICARE, SELFPAY ==
[2024-07-17 08:51] VITALS: BP 154/76; PULSE 78; RESP 16; TEMP 36.1; O2SAT 99
--- NOTE | 2024-07-17 09:13 | ED.GENADULT ---
HPI - General Adult General Chief complaint: Skin/Abscess/Foreign Body Stated complaint: RASH Time Seen by Provider: 07/17/24 09:14 Source: patient Mode of arrival: ambulatory Limitations: no limitations History of Present Illness HPI narrative: 74-year-old male patient presents to the [facility] with complaints of a rash to bilateral upper extremities, back, trunk and legs bilateral thighs and crotch area. Patient states the rash started about a week ago. Patient states he has been putting some [id number]-[id number] hydrocortisone cream on it but has not had any relief. Denies taking any Benadryl or antihistamines since the rash started. Patient states he recently started a Medication for his lip area that was prescribed to him by his fiber optic technician for pre cancer treatment that will help his lips peel and to get rid of any precancer skin. Patient states he started this about 3 weeks ago. Patient denies coming in contact with any poison julia and denies working in the [employer] recently. Patient denies any new laundry detergents or soaps that he is aware of but states he needs to be checking with his . Related Data Home Medications ?Medication ?Instructions ?Recorded ?Confirmed ?Last Taken ?Type insulin lispro 100 unit/mL See Rx Instructions .Route .COMPLEX 09/16/23 02/19/24 Unknown History subcutaneous pen (Humalog KwikPen (U-100) Insulin) escitalopram oxalate 10 mg tablet 10 mg PO DAILY 09/23/23 02/19/24 Unknown History fluorouracil 5 % topical cream applic topical 07/17/24 Unknown History Allergies Allergy/AdvReac Type Severity Reaction Status Date / Time diatrizoate meglumine Allergy Intermediate Unknown Verified 07/17/24 08:55 gadobenic acid (From Allergy Intermediate Rash Verified 07/17/24 08:55 contrast - MRI) iohexol (From contrast - CT, Allergy Intermediate Rash Verified 07/17/24 08:55 X-RAY) Contrast Media Allergy Unknown Hives / Uncoded 07/17/24 08:55 Red Face Review of Systems Review of Systems: CONSTITUTIONAL: Denies fever, chills, or sweats. EYES: Denies visual changes, redness, or discharge. ENT: Denies rhinorrhea, congestion, sore throat, or otalgia. CARDIOVASCULAR: Denies chest pain, palpitations, or edema. RESPIRATORY: Denies cough or dyspnea. GASTROINTESTINAL: Denies abdominal pain, nausea, vomiting, or diarrhea. GENITOURINARY: Denies dysuria or hematuria. SKIN: Positive rash with itching. MUSCULOSKELETAL: Denies back pain, joint pain, or myalgia. NEUROLOGIC: Denies headache, numbness, or weakness. PSYCHIATRIC: Denies anxiety or depression. [facility] Past Medical History Medical History Essential tremor Abdominal abscess Abdominal mass Back pain Saddle anesthesia Paresthesia and pain of both upper extremities Degenerative disk disease Overweight (BMI 25.0-29.9) Hypertension Diabetes type 2, controlled History of diverticulitis Diverticulosis Surgical History Surgical History History of carpal tunnel release Family History Family History Father Family history of diabetes mellitus in first degree relative Patient's father is Other Hypertension Social History Social History Smoking status: Former smoker Second hand tobacco smoke exposure: No Alcohol intake: current Drinks per week: 1 Alcohol use details: per week Substance use: never Substance use type: does not use Lack of Transportation: No Lack of Food: Never True Current Housing: I Have Housing Concerned About Future Housing: No Difficulty Paying Gas/Electric Bills: No Difficulty Paying for Meds: No Currently Unemployed: No Education: Associate Degree Difficulty w/ Childcare or Family Care: No Living arrangements: with family Gender identity (if verbalized by the patient): Male Sexual Orientation (if Verbalized by the Patient): Straight or Heterosexual Spiritual care concerns: No Agree to blood products: Yes Comments At the time of my signature I agree with nursing past medical history, surgical, social, and family history. There is no relevant family history pertinent to the presenting complaint. Exam Narrative: GENERAL: Well-appearing, well-nourished, and in no acute distress. HEAD: Normocephalic, atraumatic. EYES: PERRLA and EOMI. ENT: Nares clear, no rhinorrhea or epistaxis. Mucous membranes moist. Patient does have blister like lesions noted to the bottom lip NECK: Supple. No lymphadenopathy CHEST: Clear to auscultation. No respiratory distress. HEART: Regular rate and rhythm. No murmur heard. Normal peripheral pulses. ABDOMEN: Soft, nontender, nondistended, normal active bowel sounds. EXTREMITIES: Normal range of motion. No edema. SKIN: Warm, dry, patient has macular papular rash noted to bilateral upper extremities various areas to the trunk and back. There appears to be various erythema at pat macular papular rash noted to the neck area as well. No open wounds or drainage noted anywhere on the rash. No blister-like lesions noted. NEURO: No focal deficits. Alert and oriented x3. Course Course Level of Care: Express Care Visit Vital Signs Vital signs: Vital Signs Temperature 36.1 C L 07/17/24 08:51 Pulse Rate 78 07/17/24 08:51 Respiratory Rate 16 07/17/24 08:51 Blood Pressure 154/76 H 07/17/24 08:51 Pulse Oximetry 99 07/17/24 08:51 Temperature 36.1 C L 07/17/24 08:51 Pulse Rate 78 07/17/24 08:51 Respiratory Rate 16 07/17/24 08:51 Blood Pressure 154/76 H 07/17/24 08:51 Pulse Oximetry 99 07/17/24 08:51 Vital signs reviewed. The patient has been informed that they may have pre-hypertension or Hypertension based on a BP reading in the department. I recommend that the patient call the primary care provider listed on their discharge instructions or a physician of their choice this week to arrange follow up for further evaluation of possible pre-hypertension or Hypertension Medical Decision Making MDM Narrative Medical decision making narrative: plan care for patient is to provide him steroids to help with the rash it would also recommend an xdzv-kfc-lfjayli 24 hour antihistamine to help with itching something such as Zyrtec, Claritin and Lorna. Patient does have a follow-up appointment with his fiber optic technician next week and highly recommended to notify her of the rash to see if this could be possibly an allergic reaction to the medication he is on. patient is aware of the plan of care at this time denies any other questions or concerns at this time. Differential Diagnosis Differential Diagnosis: Differential diagnosis: Contact dermatitis, poison julia, poison sumac, psoriasis, eczema, allergic reaction, drug reaction, scabies, tinea syphilis, lung disease, viral exanthema, pityriasis, erythema multiforme. Vital Signs Vital Signs: Vital Signs Temperature 36.1 C L 07/17/24 08:51 Pulse Rate 78 07/17/24 08:51 Respiratory Rate 16 07/17/24 08:51 Blood Pressure 154/76 H 07/17/24 08:51 Pulse Oximetry 99 07/17/24 08:51 Temperature 36.1 C L 07/17/24 08:51 Pulse Rate 78 07/17/24 08:51 Respiratory Rate 16 07/17/24 08:51 Blood Pressure 154/76 H 07/17/24 08:51 Pulse Oximetry 99 07/17/24 08:51 Critical Care Time Critical Care Time Critical Care Time: No Discharge Plan Discharge Clinical Impression: Contact dermatitis Patient Disposition: Home Condition: Stable Instructions: Antibiotic Form, Contact Dermatitis (ED) Additional Instructions: Wash the area with soap and cool water only. Use skin creams/lotion or anti-itch medicine to reduce itchiness Avoid scratching when possible to prevent worsening of the condition and disruption of the skin that could lead to bacterial infection To relieve itching, place a cool washcloth or some ice over the area that itches, rather than scratching Follow up with primary care provider or seek ER if you have trouble breathing, become hoarse, or start wheezing, develop belly cramps, vomiting or feel dizzy. I will prescribe you oral steroids to help decrease the itchiness and a rash. Please take as prescribed. Please take an haab-yqj-ndfavwa 24 hour antihistamine to help with itching so something like Zyrtec, Claritin or Lorna. Only need to take this once a day. Patient Language: Tristanian Prescriptions: New prednisone 10 mg tablets,dose pack See Rx Instructions .ROUTE .COMPLEX Qty: 48 0RF Rx Instructions: 50 mg x 3 days, 40 mg x 3 days, 30 mg x 3 days, 20 mg x 3 days, 10 mg x 3 days No Action insulin lispro [Humalog KwikPen Insulin] 100 unit/mL insulin pen See Rx Instructions .ROUTE .COMPLEX Rx Instructions: use as directed fluorouracil 5 % cream TOPICAL escitalopram oxalate 10 mg tablet 10 mg PO DAILY lisinopril-hydrochlorothiazide 10-12.5 mg tablet 1 tablet PO DAILY Qty: 90 3RF rosuvastatin 10 mg tablet 10 mg PO DAILY Qty: 90 3RF primidone 50 mg tablet 50 mg PO BID Qty: 180 1RF metformin 500 mg tablet 1,000 mg PO BIDWMEAL Qty: 360 3RF insulin glargine [Lantus Solostar U-100 Insulin] 100 unit/mL (3 mL) insulin pen 40 unit SUBCUT BID Qty: 75 3RF Follow-up/Referrals: Cherie Sorenson MD [Primary Care Provider] - Time of Disposition: 09:25
== END 2024-07-17 09:28 | disposition home or self-care (01) ==
PROVIDERS: Emergency Provider Nurse Practitioner Family; PCP Family Medicine
DX: L25.9 Unspecified contact dermatitis, unspecified cause (principal); E11.9 Type 2 diabetes mellitus without complications; I10 Essential (primary) hypertension; Z87.891 Personal history of nicotine dependence
CPT/HCPCS: 99213; G0463

== ENCOUNTER 2024-08-09 19:25 | Emergency (ER) | payer MEDICARE, SELFPAY ==
[2024-08-09 19:33] VITALS: BP 155/115; PULSE 90; RESP 20; TEMP 36.4; O2SAT 99
--- NOTE | 2024-08-09 20:56 | ED_ITS ---
HPI - Skin/Abscess/Foreign Bdy General Chief complaint: Skin/Abscess/Foreign Body Stated complaint: Rash Time Seen by Provider: 08/09/24 19:55 Source: patient and RN notes reviewed Mode of arrival: ambulatory Limitations: no limitations History of Present Illness HPI narrative: [age]-old male presents Express Care complaining of a full-body rash. Patient says him and his both have this pruritic rash. Patient has been treated twice with permethrin. She also has been treated with a Medrol Dosepak. Patient is at the store steroid significantly improve his symptoms in the subsided. Patient states it has returned since stopping the steroids. Patient denies any exposure to scabies or any risk factors pain in contact with scabies. Patient reports the rash is itchy has been taking Benadryl as needed to help stop the itching sensation. Patient denies any upper respiratory symptoms, fevers, body chills, or any exposure to poison julia. Patient has a history of diabetes this is controlled with Lantus. Related Data Home Medications ?Medication ?Instructions ?Recorded ?Confirmed ?Last Taken ?Type insulin lispro 100 unit/mL See Rx Instructions .Route .COMPLEX 09/16/23 08/09/24 Unknown History subcutaneous pen (Humalog KwikPen (U-100) Insulin) escitalopram oxalate 10 mg tablet 10 mg PO DAILY 09/23/23 08/09/24 Unknown History fluorouracil 5 % topical cream 1 applic topical DAILY 07/17/24 08/09/24 Unknown History Allergies Allergy/AdvReac Type Severity Reaction Status Date / Time diatrizoate meglumine Allergy Intermediate Unknown Verified 08/09/24 19:38 gadobenic acid (From Allergy Intermediate Rash Verified 08/09/24 19:38 contrast - MRI) iohexol (From contrast - CT, Allergy Intermediate Rash Verified 08/09/24 19:38 X-RAY) Contrast Media Allergy Unknown Hives / Uncoded 08/09/24 19:38 Red Face Review of Systems Review of Systems: CONSTITUTIONAL: Denies fever, chills, or sweats. EYES: Denies visual changes, redness, or discharge. ENT: Denies rhinorrhea, congestion, sore throat, or otalgia. CARDIOVASCULAR: Denies chest pain, palpitations, or edema. RESPIRATORY: Denies cough or dyspnea. GASTROINTESTINAL: Denies abdominal pain, nausea, vomiting, or diarrhea. GENITOURINARY: Denies dysuria or hematuria. SKIN: Positive for rash and itching. MUSCULOSKELETAL: Denies back pain, joint pain, or myalgia. NEUROLOGIC: Denies headache, numbness, or weakness. PSYCHIATRIC: Denies anxiety or depression. All other systems reviewed are negative, except as documented in HPI. [facility] Past Medical History Medical History Essential tremor Abdominal abscess Abdominal mass Back pain Saddle anesthesia Paresthesia and pain of both upper extremities Degenerative disk disease Overweight (BMI 25.0-29.9) Hypertension Diabetes type 2, controlled History of diverticulitis Diverticulosis Surgical History Surgical History History of carpal tunnel release Family History Family History Father Family history of diabetes mellitus in first degree relative Patient's father is Other Hypertension Social History Social History Smoking status: Former smoker Second hand tobacco smoke exposure: No Alcohol intake: current Drinks per week: 1 Alcohol use details: per week Substance use: never Substance use type: does not use Lack of Transportation: No Lack of Food: Never True Current Housing: I Have Housing Concerned About Future Housing: No Difficulty Paying Gas/Electric Bills: No Difficulty Paying for Meds: No Currently Unemployed: No Education: Associate Degree Difficulty w/ Childcare or Family Care: No Living arrangements: with family Gender identity (if verbalized by the patient): Male Sexual Orientation (if Verbalized by the Patient): Straight or Heterosexual Spiritual care concerns: No Agree to blood products: Yes Comments At the time of my signature, I reviewed and agree with the nursing past medical, surgical, social, and family history. There is no relevant family history pertinent to the patient complaint. Exam Narrative: GENERAL: This is a well-nourished, well-developed adult, in no apparent distress. They are non ill-appearing, nontoxic appearing. HEAD: normocephalic, atraumatic. EYES: Sclera clear/white. Conjunctiva normal. Vision is grossly intact. Extraocular movements intact EARS: External ears normal, Hearing grossly intact. NOSE: External nose normal THROAT: Mucous membranes moist NECK: Neck supple, non-tender without lymphadenopathy, masses or thyromegaly. CARDIOVASCULAR: Regular rate and rhythm without murmurs, gallops, or rubs. RESPIRATORY: Clear to auscultation. Breath sounds equal bilaterally. No wheezes, rales, or rhonchi. SKIN: Pruritic papular rash primarily on the patient's arms, legs and throughout his trunk. No rash on the palm of the hands, feet soles of feet, or in the mouth. No surrounding cellulitis, no area of fluctuance no induration no exudate. NEURO: awake, alert, and oriented to person, place and time. There were no obvious focal neurologic abnormalities. EXTREMITIES: No joint tenderness, effusion, or edema noted. BACK: Nontender without deformity. No CVA tenderness. Course Course Emergency Course: Portions of this record may have been created with voice recognition software Level of Care: Express Care Visit Vital Signs Vital signs: Vital Signs Temperature 97.5 F L 08/09/24 19:33 Pulse Rate 90 08/09/24 19:33 Respiratory Rate 20 08/09/24 19:33 Blood Pressure 155/115 H 08/09/24 19:33 Pulse Oximetry 99 08/09/24 19:33 Oxygen Delivery Room Air 08/09/24 19:33 Temperature 97.5 F L 08/09/24 19:33 Pulse Rate 90 08/09/24 19:33 Respiratory Rate 20 08/09/24 19:33 Blood Pressure 155/115 H 08/09/24 19:33 Pulse Oximetry 99 08/09/24 19:33 Oxygen Delivery Room Air 08/09/24 19:33 Reviewed MDM - Skin/Abscess/Foreign Bdy MDM Narrative Medical decision making narrative: Patient denies any contact with poison julia or poison oak. Low suspicion that patient has scabies given the location of the rashes throughout his entire body. Patient denies being homeless. Patient likely has a contact dermatitis, it is unclear what caused that. Patient denies any recent changes to detergents or soaps. Given the return of the rash after a Medrol Dosepak is likely he had a stronger taper steroids. Will prescribe him a 3 week course of prednisone Advised patient to strictly monitor blood sugar and to follow-up with his primary care provider. Also advised patient to follow-up with a manager training at the symptoms return. Discussed physical exam findings. Advised supportive measures and signs/symptoms to go to the ER. Pt is appropriate for outpt treatment and f/u. Patient blood pressure elevated during stay. She denies any symptoms or any headaches, blurry vision, chest pain. Patient advised to follow-up PCP patches blood pressure. Differential Diagnosis Differential diagnosis: Likely viral exanthem, urticaria and contact dermatitis Critical Care Time Critical Care Time Critical Care Time: No Discharge Plan Discharge Clinical Impression: Contact dermatitis Qualifiers: Contact dermatitis type: unspecified Contact dermatitis trigger: unspecified trigger Qualified Code(s): L25.9 - Unspecified contact dermatitis, unspecified cause Patient Disposition: Home Condition: Stable Instructions: Contact Dermatitis (ED) Additional Instructions: Take the steroids as directed. Please monitor blood sugars while taking prednisone. He may take Zyrtec, Lorna, Claritin, or Benadryl as needed for itching or allergy symptoms. Benadryl will make you drowsy the please do not drive or operate machinery while taking Benadryl Please follow-up with your primary care provider or manager training for further evaluation your rash.. If any symptoms worsen or you have any concerns please go to the ER immediately. Patient Language: Greek Prescriptions: New prednisone 10 mg tablet See Rx Instructions .ROUTE .COMPLEX Qty: 51 0RF Rx Instructions: Take 6 tablets on day 1 then Take 5 tablets for 3 days then Take 4 tablets for 3 days then Take 3 tablets for 3 days then Take 2 tablets for 3 days then Take 1 tablet for 3 days. No Action insulin lispro [Humalog KwikPen Insulin] 100 unit/mL insulin pen See Rx Instructions .ROUTE .COMPLEX Rx Instructions: use as directed fluorouracil 5 % cream 1 applic TOPICAL DAILY escitalopram oxalate 10 mg tablet 10 mg PO DAILY lisinopril-hydrochlorothiazide 10-12.5 mg tablet 1 tablet PO DAILY Qty: 90 3RF rosuvastatin 10 mg tablet 10 mg PO DAILY Qty: 90 3RF primidone 50 mg tablet 50 mg PO BID Qty: 180 1RF metformin 500 mg tablet 1,000 mg PO BIDWMEAL Qty: 360 3RF insulin glargine [Lantus Solostar U-100 Insulin] 100 unit/mL (3 mL) insulin pen 40 unit SUBCUT BID Qty: 75 3RF permethrin 5 % cream 1 applic topical Q14D Qty: 60 1RF Rx Instructions: apply second treatment 14 days after first treatment if live lice remain. Apply from scalp to toes and rinse off after 8 hours. Follow-up/Referrals: PHYSICIAN,BILINGUAL STUDENT TUTOR [Primary Care Provider] - Time of Disposition: 20:16
== END 2024-08-09 20:22 | disposition home or self-care (01) ==
DX: L25.9 Unspecified contact dermatitis, unspecified cause (principal); Z87.891 Personal history of nicotine dependence; I10 Essential (primary) hypertension; E11.9 Type 2 diabetes mellitus without complications; Z79.4 Long term (current) use of insulin
CPT/HCPCS: 99213; G0463

== ENCOUNTER 2025-01-23 11:23 | Emergency (ER) | payer MEDICARE, SELFPAY ==
[2025-01-23 11:37] VITALS: BP 158/94; PULSE 91; RESP 16; TEMP 36.4; O2SAT 99
--- NOTE | 2025-01-23 11:58 | ED_ITS ---
HPI - General Adult General Chief complaint: Unspecified Stated complaint: infected salivary gland? Time Seen by Provider: 01/23/25 11:40 Source: patient, RN notes reviewed and old records reviewed Mode of arrival: ambulatory Limitations: no limitations History of Present Illness HPI narrative: 74-year-old male patient with history of type 2 diabetes presents today with a one-week history of sublingual pain and swelling that has worsened since yesterday, primarily on the right side. He is also complaining of some mild difficulty swallowing and painful lymph node on the right neck. Denies fever, difficulty breathing, tooth pain, neck pain or swelling. Currently rates pain 5/10 with no OTC interventions prior to arrival. Patient reports he was seen here at [facility] approximately 1.5 years ago for same complaint, diagnosed with an infected salivary gland, and discharged home with antibiotics. Review of his chart shows he was seen here at [facility] in February of 2023, subsequently transferred to the ER at [facility] where he was worked up and diagnosed with sialoadenitis and a 2 mm stone and discharged home on Keflex. Patient states he antibiotics worked well and symptoms are similar today. Related Data Home Medications ?Medication ?Instructions ?Recorded ?Confirmed ?Last Taken ?Type insulin lispro 100 unit/mL See Rx Instructions .Route .COMPLEX 09/16/23 08/09/24 Unknown History subcutaneous pen (Humalog KwikPen (U-100) Insulin) Allergies Allergy/AdvReac Type Severity Reaction Status Date / Time diatrizoate meglumine Allergy Intermediate Unknown Verified 08/09/24 19:38 gadobenic acid (From Allergy Intermediate Rash Verified 01/23/25 11:25 contrast - MRI) iohexol (From contrast - CT, Allergy Intermediate Rash Verified 01/23/25 11:25 X-RAY) Contrast Media Allergy Unknown Hives / Uncoded 08/09/24 19:38 Red Face PMFSH Past Medical History Medical History Essential tremor Abdominal abscess Abdominal mass Back pain Saddle anesthesia Paresthesia and pain of both upper extremities Degenerative disk disease Overweight (BMI 25.0-29.9) Hypertension Diabetes type 2, controlled History of diverticulitis Diverticulosis Surgical History Surgical History History of carpal tunnel release Family History Family History Father Family history of diabetes mellitus in first degree relative Patient's father is Other Hypertension Social History Social History Smoking status: Former smoker Second hand tobacco smoke exposure: No Alcohol intake: current Drinks per week: 1 Alcohol use details: per week Substance use: never Substance use type: does not use Lack of Transportation: No Lack of Food: Never True Current Housing: I Have Housing Concerned About Future Housing: No Difficulty Paying Gas/Electric Bills: No Difficulty Paying for Meds: No Currently Unemployed: No Education: Associate Degree Difficulty w/ Childcare or Family Care: No Living arrangements: with family Gender identity (if verbalized by the patient): Male Sexual Orientation (if Verbalized by the Patient): Straight or Heterosexual Spiritual care concerns: No Agree to blood products: Yes Comments At time of signature, I have reviewed and agree with nursing past medical, surgical, social and family history unless otherwise noted. Please see nursing chart for further information. There is no relevant family history pertinent to the presenting complaint Exam Narrative: GENERAL: Well-appearing, well-nourished, and in no acute distress. HEAD: Normocephalic, atraumatic. EYES: EOMI. No redness or drainage. Conjunctivae normal. ENT: Mucous membranes pink and moist. Nares clear. No rhinorrhea. Throat normal. Uvula midline. Mild sublingual tenderness without obvious swelling, purulence, or palpable stone. Managing secretions normally. NECK: Normal AROM. Supple. Tenderness to right tonsillar lymph node. CHEST: No respiratory distress. Clear to auscultation. HEART: Regular rate and rhythm. No murmur appreciated. Normal peripheral pulses. EXTREMITIES: Normal range of motion. No edema. SKIN: Warm, dry, no rash. Capillary refill normal. Normal skin turgor. NEURO: No focal deficits. Alert and oriented x3. Gait steady. PSYCH: Normal affect. No signs of depression or anxiety. Course Course Level of Care: Express Care Visit Vital Signs Vital signs: Vital Signs Temperature 97.5 F L 01/23/25 11:37 Pulse Rate 91 01/23/25 11:37 Respiratory Rate 16 01/23/25 11:37 Blood Pressure 158/94 H 01/23/25 11:37 Pulse Oximetry 99 01/23/25 11:37 Temperature 97.5 F L 01/23/25 11:37 Pulse Rate 91 01/23/25 11:37 Respiratory Rate 16 01/23/25 11:37 Blood Pressure 158/94 H 01/23/25 11:37 Pulse Oximetry 99 01/23/25 11:37 Reviewed Transfer Transfered to: [place] Transportation: Other (Private vehicle) Transfer rationale: Sublingual pain, difficulty swallowing Accepting physician: Karen Medical Decision Making MDM Narrative Medical decision making narrative: 74-year-old male patient with history of type 2 diabetes presents today with a one-week history of sublingual pain and swelling that has worsened since yesterday, primarily on the right side. He is also complaining of some mild difficulty swallowing and painful lymph node on the right neck. Patient was previously seen 2 years ago at the [facility]gent Care for same complaint and was transferred to the ER and subsequently diagnosed with sialoadenitis and 2 mm stone was treated with Keflex. States similar symptoms today. Upon exam, Mild sublingual tenderness without obvious swelling, purulence, or palpable stone. Managing secretions normally. Tenderness to right tonsillar lymph node. Due to complaints of difficulty swallowing, history of type 2 diabetes, and history of previous salivary gland infection, recommend ER transfer for further evaluation. Patient agrees with plan. Vital signs stable. Differential Diagnosis Differential Diagnosis: sialoadenitis, sialolithiasis, parotid gland abscess, Milad's angina Vital Signs Vital Signs: Vital Signs Temperature 97.5 F L 01/23/25 11:37 Pulse Rate 91 01/23/25 11:37 Respiratory Rate 16 01/23/25 11:37 Blood Pressure 158/94 H 01/23/25 11:37 Pulse Oximetry 99 01/23/25 11:37 Temperature 97.5 F L 01/23/25 11:37 Pulse Rate 91 01/23/25 11:37 Respiratory Rate 16 01/23/25 11:37 Blood Pressure 158/94 H 01/23/25 11:37 Pulse Oximetry 99 01/23/25 11:37 Critical Care Time Critical Care Time Critical Care Time: No Discharge Plan Discharge Clinical Impression: Swallowing difficulty Qualifiers: Dysphagia type: unspecified Qualified Code(s): R13.10 - Dysphagia, unspecified Patient Disposition: Acute Care Hospital Condition: Stable Patient Language: Ugandan Prescriptions: No Action insulin lispro [Humalog KwikPen Insulin] 100 unit/mL insulin pen See Rx Instructions .ROUTE .COMPLEX Rx Instructions: use as directed rosuvastatin 10 mg tablet 10 mg PO DAILY Qty: 90 3RF metformin 500 mg tablet 1,000 mg PO BIDWMEAL Qty: 360 3RF insulin glargine [Lantus Solostar U-100 Insulin] 100 unit/mL (3 mL) insulin pen 40 unit SUBCUT BID Qty: 75 3RF (DME) pen needle, diabetic 32 gauge x 5/16 needle See Rx Instructions .Route Qty: 300 12RF Rx Instructions: Use daily for Lantus and TID before meals lisinopril-hydrochlorothiazide 10-12.5 mg tablet 1 tablet PO DAILY Qty: 90 3RF primidone 50 mg tablet 50 mg PO BID Qty: 180 1RF escitalopram oxalate 10 mg tablet 10 mg PO DAILY Qty: 90 1RF Follow-up/Referrals: UNKNOWN,DOCTOR [Primary Care Provider] Time of Disposition: 12:06
== END 2025-01-23 12:00 | disposition short-term general hospital (02) ==
PROVIDERS: Emergency Provider Nurse Practitioner
DX: R13.10 Dysphagia, unspecified (principal); I10 Essential (primary) hypertension; E11.9 Type 2 diabetes mellitus without complications; Z79.4 Long term (current) use of insulin; Z79.84 Long term (current) use of oral hypoglycemic drugs
CPT/HCPCS: 99212; G0463

== ENCOUNTER 2025-01-23 12:36 | Emergency (ER) | payer MEDICARE, SELFPAY ==
--- NOTE | ~2025-01-23 | CT_ITS ---
EXAMINATION: CT soft tissue neck w con COMPARISON: None HISTORY: tongue/neck swelling TECHNIQUE: Axial images were obtained with IV contrast. Sagittal, coronal reconstruction images were obtained from the axial views. Omnipaque 370, [address] scan performed using dose optimization techniques including the following automated exposure control; adjustment of mA and/or kV; use of iterative reconstruction technique. Automatic exposure control was used to reduce radiation dose. Permanent radiation dose record is archived to PACS. FINDINGS: Visualized brain parenchyma is unremarkable. Optic globes are unremarkable No thickening of the prevertebral space. Asymmetry of the airway or the base of the tongue. There is no asymmetry of the aryepiglottic folds No asymmetry of the vocal cords The right thyroid lobes enlarged with multiple nodules the largest measuring 3 x 3 cm, ultrasound is recommended There is no lymphadenopathy in the anterior superior mediastinum. No thickening of the esophagus Parapharyngeal spaces and tonsillar tissue unremarkable Submandibular glands unremarkable. Parotid glands unremarkable. No jugulodigastric or posterior cervical lymphadenopathy. The lung apices are unremarkable. No sclerotic or lytic lesions. No significant sinusitis. No mastoiditis. IMPRESSION: No abscess identified. Incidental findings above Reviewed, dictated and finalized at location P.
--- OUTSIDE RECORDS SUMMARY | 2025-01-23 12:38 | XMS_ITS | Encounter Summary ---
Author Organization [facility] Healthcare Address [address] [place] [address] Care Team Providers Care Cutter Grinder Operator Name Role Phone Niles Aldana MD Primary Care Provider [phone] Niles Aldana MD Unavailable [phone] Dyana Cloud RN Unavailable Unavailab Lucas Hinton MD Primary Care Provider + Cherie Sorenson MD Primary Care Provider [phone] Reason for Visit * Reason Onset Date Comments Prior Auth 12/09/2018 Nortriptyline Ap proved Encounter Details Date Type Department Care Team (Late st Contact Info) Description 12/09/2018 Telephone [facility] [address] [facility] [address] [place] [address] Daniel Brock MD [address] [place] [address], [place] [phone] Prior Auth (Nortriptyline Approved) Social History Tobacco Use Types Packs/Day Years Used Date Smoking Tobacco: Former Cigarettes Q uit: 1997 Smokeless Tobacco: Never Alcohol Use Standard Drinks/Week Comments No 0 (1 standard drink = 0.6 oz pur e alcohol) Sex and Gender Information Value Date Recorded Sex Assigned at Not on file Legal Sex Male 4:21 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 Author CCM Chronic Pain Care Plan Chronic Care Management No change(04/19 7:41 AM FOREST BIOMETRICS PROFESSOR) No Efra, Yenny Arguello RN Note: Problem: Chronic Pain Goals: 1. Minimize further functional decline 2. Maximize quality of life 3. Control pain Strategies: - Activity/exercise program recommendation - Conservative stepwise pain medicine strategy with multi-disciplinary approach - Recommend healthy lifestyle strategies and compensatory methods as needed documented as of this encounter Visit Diagnoses Not on filedocumented in this encounter Additional Health Concerns Infection Onset Date Last Indicated Resolved Time C. difficile suspected 06/14/2023 06/14/202306/13 11:46 AM FOREST BIOMETRICS PROFESSOR documented as of this encounter Care Teams Cutter Grinder Operator Relationship Specialty Start Date End Date Niles Aldana MD [address] [place] [address] PCP - General 05/27/18 12/25/20 Lucas Soares MD [facility] [place] [address] PCP - General Internal Medicine 12/26/20 11/14/22 Cherie Sorenson MD [address] [place] [address] PCP - General Family Medicine 11/15/22 Niles Aldana MD [address] [place] [address] Family Medicine 05/27/18 Dyana Cloud RN Registered Nurse 04/19/19 documented as of this encounter
--- OUTSIDE RECORDS SUMMARY | 2025-01-23 12:38 | XMS_ITS | Clinical Summary ---
Author Organization [facility] Address [address] [place] [id number] Care Team Providers Care Long Wall Mining Machine Helper Name Role Phone Unavailable Primary Care Provider Unavailabl e Social History Tobacco Use Types Packs/Day Years Used Date Smoking Tobacco: Never Assessed Sex and Gender Information Value Date Recorded Sex Assigned at Not on file Legal Sex Male 3:55 PM CDT Gender Identity Not on file Sexual Orientation Not on file Plan of Treatment Upcoming Encounters Date Type Department Care Team (Late st Contact Info) Description 01/31/2025 10:20 AM CDT Office Visit [facility] Multispecialty [facility] - [facility] [address] [facility], [address] [place] [phone] Susanna Jerome MD [address] [facility] [address] [place] [address] Health Maintenance Due Date Last Done Comments Colorectal Cancer Screening Colonoscopy (10 Years) 1949 Hepatitis C 1967 DTaP, Tdap and Td Vaccines ( 1 - Tdap) 1968 Pneumococcal Vaccine: 50+ Ye ars (1 of 1 - PCV) 1999 Zoster Vaccines (1 of 2) 1999 Annual Medicare Wellness Visit 2014 RSV Immunization or 60+ Years (1 - 1-dose 75+ series) 2024 COVID-19 Vaccine ( - 2023-2 5 season) 2024 Influenza Adult (#1) 2025 Hepatitis A Vaccines Aged Out No long er eligible based on patient's age to complete this topic Meningococcal B Vaccine Aged Out No l onger eligible based on patient's age to complete this topic Meningococcal Vaccine Aged Out No annalee liane eligible based on patient's age to complete this topic RSV Immunizations Under 20 Months Aged Out No longer eligible based on patient's age to complete this topic Insurance MEDICARE [facility]
--- OUTSIDE RECORDS SUMMARY | 2025-01-23 12:38 | XMS_ITS | Encounter Summary ---
Author Organization [facility] Address [address] [facility] [place] [address] Care Team Providers Care Setup Operator Name Role Phone Cherie Sorenson MD Primary Care Provider [phone] Encounter Details Date Type Department Care Team (Late st Contact Info) Description 04/29/2024 Lab Requisition [facility] - DermPath Lab [address] [facility] [place] [phone] Tricia Rothman MD [address] [place] [address] Social History Tobacco Use Types Packs/Day Years Used Date Smoking Tobacco: Never Assessed Sex and Gender Information Value Date Recorded Sex Assigned at Not on file Legal Sex Male 9:38 AM CDT Gender Identity Not on file Sexual Orientation Not on file documented as of this encounter Plan of Treatment Not on file documented as of this encounter Procedures Procedure Name Priority Date/Time Associated Diagnosis Comments DERMATOPATHOLOGY Routine 04/29/2024 11:3 3 AM CALCINE FURNACE TENDER documented in this encounter Results * DERMATOPATHOLOGY (04/29/2024 11:33 AM CALCINE FURNACE TENDER) Case Report Dermatopathology Report Case: [id number] Authorizing Provider: Tricia Rothman MD Collected: 04/29/2024 11:33 AM Ordering Location: [facility] - Received: 04/30/2024 01:25 PM DermPath Lab Pathologist: Megha Hughes MD Specimen: Skin, left bottom lip 1:20 PM CALCINE FURNACE TENDER DERMATOPATHOLOGY LABORATORY Addendum 1 HSV immunostain is negative. 1:20 PM CALCINE FURNACE TENDER DERMATOPATHOLOGY LABORATORY Addendum electronically signed by Megha Hughes MD on 05/06/2024 at 1320 CALCINE FURNACE TENDER Final Diagnosis Specimen A. SKIN, left bottom lip: INTRAEPIDERMAL KERATINOCYTIC ATYPIA WITH DERMAL MIXED INFILTRATE AND INTRACORNEAL BACTERIA (L57.0) (see microscopic description and comment) 1:20 PM [facility] DERMATOPATHOLOGY [facility]ORATORY at [address] CALCINE FURNACE TENDER Clinical History BCC vs SCC vs Impetigo 1:20 PM [facility] DERMATOPATHOLOGY [facility]ORATORY Gross Description Specimen A: Received is one formalin filled container labeled with the patient's name and designated left bottom lip. The specimen consists of a shave biopsy measuring 11x6x1 mm. Jar 0. 1:20 PM [facility] DERMATOPATHOLOGY LABORATORY Microscopic Description Specimen A. SKIN, left bottom lip: There is focal parakeratosis. Scattered intracorneal bacteria is highlighted by Gram stain. The lower half of the epidermis shows disorderly maturation of keratinocytes with nuclear pleomorphism. There is a dermal mixed infiltrate composed of plasma cells, lymphocytes, histiocytes, and neutrophils. Viral cytopathic change is not appreciated. Grocott's methenamine silver (GMS) stain is negative for fungal elements in the sections examined. COMMENT: The histologic differential diagnosis includes an inflamed and impetiginized actinic keratosis, and an infectious process, including impetigo, with reactive keratinocytic atypia. Clinical correlation with culture is recommended if clinically indicated. An HSV immunostain will be performed and results reported in an addendum. 1:20 PM [facility] DERMATOPATHOLOGY LABORATORY Disclaimer An external and internal positive and negative controls are appropriate for the histochemical, immunohistochemical and immunofluorescence stain(s) in this case (if any), except where stated explicitly. The performance characteristics of the stain(s) cited in this report were developed and its performance characteristic determined by the Dermatopathology Laboratory at [facility], directed by Dr. Kitty Ba. These tests need not be, and therefore are not, approved by the [place] Food and Drug Administration. The tests are used for clinical purposes. Billing Codes Specimen Charges Stain Charges 76416 1 [id number] 1 1 1:20 PM CALCINE FURNACE TENDER DERMATOPATHOLOGY LABORATORY Embedded Images 1:20 PM CALCINE FURNACE TENDER DERMATOPATHOLOGY LABORATORY Pathology/Cytolo gy TISSUE SPECIMEN FROM SKIN / Unknown 04/29/2024 11:33 AM CALCINE FURNACE TENDER 04/30/2024 1:25 PM CALCINE FURNACE TENDER Tricia Rothman MD LAB - PATHOLOGY/CYTOLOGY ORD ERABLES Edited Result - Final DERMATOPATHOLOGY LABORATORY [facility] - Department of Dermatology [facility] [address] [place] [address], [address] [phone] documented in this encounter Visit Diagnoses Not on filedocumented in this encounter Care Teams Setup Operator Relationship Specialty Start Date End Date Cherie Sorenson MD [address] [place] [address] PCP - General Family Medicine 09/08/23 documented as of this encounter
--- OUTSIDE RECORDS SUMMARY | 2025-01-23 12:38 | XMS_ITS | Clinical Summary ---
Author Organization [facility] 2 Address [address] [facility] [place] [address] Care Team Providers Care Field Spec Name Role Phone iNles Aldana MD Unavailable [phone] Dyana Cloud RN Unavailable Unavailab Cherie Reed MD Primary Care Provider [phone] Allergies Active Allergy Reactions Criticality Noted Date Comments Iodine Other (See comments) Medium 06/10/2023 Rash and severe muscle spasms/jerking in extremities after administration of MRI contrast. No reaction if pre-medicated. No problems with CT/Xray dye or PO contrast Medications escitalopram (LEXAPRO) 10 mg tablet TK 1 T PO QD 5 9 Active metFORMIN (GLUCOPHAGE) 500 mg tablet TK 2 TS PO BID 1 9 Active TECHLITE PEN NEEDLE 32 gauge x 1/4 needle USE 1 NEEDLE D WITH INSULIN AT DINNER 11 8 Active blood glucose diagnostic strip Check blood sugar 2 hours after eating daily. 60 each 0 Active rosuvastatin (CRESTOR) 10 mg tablet Take 1 tablet (10 mg total) by mouth daily 3 Active testosterone cypionate (DEPO-TESTOTERON E) 200 mg/mL injection ADMINISTER 0.5 ML IN THE MUSCLE 1 TIME A WEEK 4 Active acetaminophen (TYLENOL) 325 mg tablet Take 2 tablets (650 mg total) by mouth every 6 (six) hours as needed for pain 4 Active lidocaine (ASPERCREME) 4 % adhesive patch,medicated Place 1 patch on the skin daily 20 patch [address] (PROTONIX) 40 mg EC tabletIndication s:Stress Ulcer Prophylaxis Take 1 tablet (40 mg total) by mouth 2 (two) times a day 60 tablet 3 4 Active blood-glucose sensor device 1 Units 4 (four) times a day (with meals and nightly) anderson check Freestyle Vinnie 2 and 3, Dexcom G6 and G7 for discharge 1 each 4 Active insulin lispro (HumaLOG, ADMELOG) 100 unit/mL vial for injection Inject 5 Units under the skin 3 (three) times a day with meals 10 mL 4 Active insulin lispro (HumaLOG, ADMELOG) 100 unit/mL vial for injection Inject 1 Units under the skin 3 (three) times a day with meals Blood glucose mg/dL: 149 or less: No insulin 150-199: add 1 unit 200-249: add 2 units 250-299: add 3 units 300-349: add 4 units and notify physician for adjustment of insulin orders. 350-399: add 5 units and notify physician for adjustment of insulin orders. Over 400: Notify physician for adjustment of insulin orders. 10 mL 4 Active LANTUS 100 unit/mL (3 mL) pen for injection ADMINISTER 26 UNITS UNDER THE SKIN EVERY NIGHT 15 mL 4 Active oxyCODONE (ROXICODONE) 5 mg immediate release tabletIndication s:Pain Take 1 tablet (5 mg total) by mouth every 6 (six) hours as needed for pain for up to 6 doses 6 tablet 4 Active insulin lispro (HumaLOG, ADMELOG) 100 unit/mL pen for injection Inject 1-5 units under the skin 3 (three) times a day with meals. Blood glucose mg/dL 150-199: 1 unit, 200-249: 2 units, 250-299: 3 units, 300-349: 4 units, 350 or greater: 5 units. Notify provider for blood glucose greater than 299 mg/dL. Refer to After Visit Summary for Sliding Scale Insulin Instructions. 15 mL 3 4 Active Active Problems Problem Noted Date Diagnosed Date At risk for malnutrition 07/14/2023 Assessment & Plan (07/18/2023 11:13 AM CDT): Patient arrived to the ED with 3 day history of nausea and vomiting 07/12 started J-tube feeds 07/13 continue NPO status; advancing tube feeds to goal with bolus water flush 07/14 clear liquid diet advanced to fulls, TF to goal 07/15 tolerating full liquid diet, will transition tube feeds to nightly with plan to advance to regular diet tonight 07/15 albumin 3.3 prealbumin 22 Postprocedural intraabdominal abscess 07/14/2023 Assessment & Plan (07/18/2023 11:11 AM CDT): 07/11 IR consulted, drain placed with Purulent drainage flush drain twice daily with 10ml Saline 07/17 drain output 10 mL/24h the day of discharge, complete all prescribed antibiotics, Follow up with IR and ACCS Culture 07/12 IR -Klebsiella pneumonia Antibiotic Zosyn 07/12-07/14 Augmentin 07/14-07/24 (10 days) MYLES (acute kidney injury) 07/13/2023 Assessment & Plan (07/18/2023 11:14 AM CDT): - 07/13 sCr improving with 1.97 from 2.2; remains NPO with J tube feeds -07/14 sCr 1.72 from 1.97, tolerating clear liquid diet and tube feeds -07/15 sCr 1.45 from 1.72 advancing diet and continuing tube feeds -07/16 sCr 1.29 from 1.45, tolerating PO diet and TF per J tube -07/17 sCr 1.21 Lateral SBO (small bowel obstruction) 07/11/2023 Assessment & Plan (07/18/2023 1:49 PM CDT): CONSIDERED RESOLVED: ILEUS - gastrostomy tube to gravity, output slowed - s/p decompression of intraabdominal abscess 07/11 with 12 Fr IR drain, flush with NS 10 ml BID 07/13 minimal G-tube drainage advanced to CLD; G-tube clamped 07/15 continues to tolerate full liquid diet and tube feeds at goal, will advance to regular diet 07/16 07/16 tolerates PO diet, and TF per J tube, G tube clamped +BM 07/17 continues to tolerate a PO diet, G tube clamped and J tube clamped, IR drain in place Flush the drain 2 times a day with 10 mL NS Follow up with Interventional Radiology and General Surgery for drain evaluation and for post-op evaluation and possible G and/or J tube removals and discussion of timing for EGD +/- colonoscopy Vent G tube in event of nausea provided to patient at dispo; if this occurs, patient to call ACCS office, if this does not relieve nausea; pt to go to Emergency Department Hypernatremia 06/20/2023 Assessment & Plan (06/27/2023 12:11 PM CDT): 06/19 Na 151, patient taking in CLD while G-tube to gravity 1.8L out overnight, G-tube clamped, continue oral intake of Clear liquid, repeat BMP improved Na 147, CTM 06/26 Na 138; tolerating PO diet - CONSIDER RESOLVED Hypertension 06/19/2023 Assessment & Plan (06/28/2023 8:11 AM CDT): Home Norvasc 5mg daily cont - f/u outpatient with previously established provider Discharge planning issues 06/16/2023 Assessment & Plan (07/17/2023 11:15 AM CDT): 07/[address], flushing BID; G-tube clamped today; advancing J-tube feeds 07/14 transitioned to oral antibiotic, J-tube feeds to goal, needs therapy to evaluate 07/16 noted BG 200s, consulted Endocrine Assessment & Plan (06/28/2023 8:11 AM CDT): 06/15 J tube feeds to goal, G tube to gravity, plan contrast study in 2-3 days 06/17 J-tube pulled out overnight; contrast study today 06/19 resumed and tolerating tube feeds, started CLD, planning for rehabilitation early next week 06/20: tolerating CLD. Plan rehab early next week 06/23 Tolerating CLD and TF at goal per J-tube. Having BM's. 06/24-06/25 All medications changed to PO to gear up for dc with HH for end of week 06/26 stopping nightly J tube feeds; tolerating PO diet well with G tube clamped 06/27 Patient is medically stable for discharge, SW/CM updated Complex care coordination 06/16/2023 Assessment & Plan (06/27/2023 3:34 PM CDT): OSH Pathology Slides 06/13-06/14 attempted to obtain pathology slides from OSH- [facility] in [facility] 06/15 Pathology at [facility] reached out and is willing to send slides to our pathology department, Release of information faxed to [phone] with return address as below 06/26 Called Pathology department today; has NOT received slides yet; note, will not populate into Epic chart until slides are read and completed with final report. [facility] #[phone] ---Called [place] pathology department today. 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 Report shared with patient's PCP Ana Rosa. [facility], Pathology Department [address], [address] [place] [address] Septic shock 06/10/2023 Assessment & Plan (06/27/2023 12:12 PM CDT): See Bowel perforation -SICU admission post-op -TTF 06/13 > CONSIDER RESOLVED Diabetes mellitus 06/10/2023 Assessment & Plan (07/18/2023 1:51 PM CDT): Hgb A1c: 10.2 Home regimen: 80U glargine nightly, metformin- holding 06/27 BG controlled off of TF, Endo recs for discharge discussed with patient - patient denies need to meed with CDE prior to discharge, agreeable to close outpatient f/u with established provider, instructions given for sick day insulin use and prandial insulin hold parameters --- if patient prefers to [facility] with [facility], ambulatory referral made to Endocrinology for glucose management and education resources 07/13 latus 26, lispo corrective slide Q4 07/16 noted BG 220s, consulted Endocrine, added 2 units insulin with meals in addition Lantus 26 units and SSI 07/17 BG better controlled overnight with the addition of 2u Premeal insulin, Lantus 26u QPM, Discharge plan: Lantus 26 units QPM, then Humalog 5 units per meal plus SSI follow up in Endocrine clinic or PCP Assessment & Plan (06/28/2023 8:16 AM CDT): Hgb A1c: 10.2 Home regimen: 80U glargine nightly, metformin- holding 06/13: NPH 7 TID, SSI, Endo c/s for elevated BG in setting of tube feeds 06/14 decreased TF due to diarrhea, continue to monitor BG 06/15 TF back to goal: 55 mL/hr per J tube BG 150-190s Lantus 30 units qHS, Humalog 9 units scheduled q4hrs, Humalog 0-10 units correctional scale, scheduled q4hrs 06/16 increased scheduled Humalog 11 units; additional insulin x3 doses for steroid administration (for contrast allergy) 06/19 Endocrine following adjustments as needed per guideline 06/23 BG 67-236, will follow Endocrine recommendations. 06/26 TF switched to nightly, 50% of needs yesterday, Endo notified, insulin orders changed to TID AC; decreased lantus 26u, lispro 11u TID AC. Pending final dispo recs 06/27 BG controlled off of TF, Endo recs for discharge discussed with patient - patient denies need to meed with CDE prior to discharge, agreeable to close outpatient f/u with established provider, instructions given for sick day insulin use and prandial insulin hold parameters --- if patient prefers to f/[facility] with [facility], ambulatory referral made to Endocrinology for glucose management and education resources Peritonitis 06/09/2023 Assessment & Plan (06/18/2023 9:59 AM CDT): See bowel perforation Bowel obstruction 06/09/2023 Bowel perforation 06/09/2023 Assessment & Plan (06/28/2023 8:19 AM CDT): OR 3/4 (Fouzia): ex-lap, feculent peritonitis, DAVY, no mass found, leak ?duodenum, temporary closure Closed temporarily; [facility] 06[facility]10: CT with PO and rectal contrast demonstrated no leak. Proximal jejunal inflammation. OR today for 2nd look, G tube placement, J tube placement. --OR 06/10 (Fouzia): Gastrostomy and jejunostomy tube placement, abdominal closure, drain x1 06/11: ok to dc NGT and vent G tube as needed. Okay to start trickle feeding J. Consider TTOU if stable without pressor requirements 06/13: OK for sips for comfort with venting G tube, TF to goal, multiple bowel movements, decreased TF rate to 40 from 55. 06/16: upper GI with SBFT ordered, continues to tolerate J feeds 06/17: upper GI TODAY, cancelled yesterday due to contrast allergy; J tube fell out overnight despite being sutured in place -CT abdomen/pelvis: no perforation or leak, inflammation noted. 06/18 imaging yesterday concerning for fluid collection, verified with CT; return to IR for J tube replacement 16Fr EMETERIO; resume tube feeds per J-tube 06/19: tolerating goal tube feeds; started clears today. 06/20: tolerating CLD, advanced to FLD. Continue TF through J, G clamped. 06/21: tolerated FLD yesterday. In AM, pt voiced flori CHANDLER w gastric bubble. G-tube placed to gravity, CLD for comfort, continue TFs at goal through J. Lactate wln. 06/22 G tube clamped, LORNA drain dc'd 06/23 TF per J-tube at goal. Tolerating a clear liquid diet. G-tube clamped. 06/24 G tube clamp 48 hrs, advance to soft diet 06/25 G tube clam 72 hours on soft diet, tube feed to dcrs by 1/2 do nocturnal only if tolerate go to regular tomorrow, possible dc with reg diet pending calorie count and clinical progression 06/26 Tolerating soft diet with G tube clamped, eating 75% of meals. STOP J tube feeds tonight, likely discharge tomorrow, talita clean, pain well controlled 06/27 AFVSS, ongoing soft diet tolerance with Gtube clamped, off of J tube feeds, talita intact, pain controlled --- f/u [facility] 07/15 for post-op evaluation and possible G and/or J tube removals and discussion of timing for EGD +/- colonoscopy given difficult delineation of perforation etiology and location --- patient aware that soft diet is to continue until outpatient follow up, RD education provided --- Instructions to vent G tube in event of nausea provided to patient at dispo; if this occurs, patient to call ACCS office, if this does not relieve nausea; pt to go to Emergency Department Cultures 06/08: blood culture-NG final 06/08: peritoneal fluid - KLEBSIELLA PNEUMONIAE / NFGTD 06/08: peritoneal fluid #2 - KLEBSIELLA PNEUMONIAE / NFGTD 06/09 MRSA swab negative 06/20 H-pylori- negative Antibiotics Vancomycin 06/08 Zosyn 06/08 Ertapenem: 06/08-06/14 Pathology: No [facility] pathology SEE COMPLEX COORDINATION for OSH pathology Essential tremor 03/14/2021 Assessment & Plan (03/14/2021 10:59 AM STAMP CLASSIFIER): He has an action/postural tremor noticeable over the last 2 years which is classic for ET. He has no significant parkinsonism or other deficits to categorize this as ET plus. This may have come on due to the stress associated with neuropathic pain which he has been experiencing for about 2 years. On my exam this appears to be radiclopathic and likely involves at least C8-T1. An MRI C/T spine to better characterize (since it has changed locations and severity since last imaging) would help plan next interventions. For tremor, we will try gabapentin - he only tried a subtherapeutic dose previously. This may help tremor and pain simultaneously. For his hand contracture, we will refer to orthopedics. 1. GBA 300 TID - call in 1 month to assess progress and determine if increase needed. May try propranolol if ineffective or not tolerated. 2. MRI C+T spine 3. Ortho referral 4. 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 Thoracic back pain 11/24/2018 Malignant neoplasm of prostate 08/27/2010 Surgical History Surgery Date Site/Laterality Comments PROSTATE SURGERY EPIDURAL INJECTION RIGHT CERVICAL THORACIC 1 LEVEL 4/09/2018 Right EPIDURAL INJECTION RIGHT CERVICAL THORACIC 1 LEVEL 5/2 07/2018 Right J-TUBE EXCHANGE 06/19/2023 N/A IMAGE GUIDED DRAINAGE PERITO NELLIE OR RETROPERITONEAL FLUID COLLECTION 07/12/2023 N/A ABSCESS CATHETER INJECTION 07/29/2023 N/A Medical History Medical History Date Comments Diabetes mellitus 06/10/2023 Hypertension Heartburn Arthritis Diverticulitis Sleep apnea Type 2 diabetes mellitus Family History Medical History Relation Name Comments Alcohol abuse Brother Cancer Father Diabetes Father Hyperlipidemia Father Kidney disease Father Alzheimer's disease Mother Diabetes Sister Relation Name Status Comments Brother Father Mother Sister Social History Tobacco Use Types Packs/Day Years Used Date Smoking Tobacco: Former Cigarettes Q uit: 1997 Smokeless Tobacco: Never Tobacco Cessation:Counseling Given: Not Answered Alcohol Use Standard Drinks/Week Comments No 0 (1 standard drink = 0.6 oz pur e alcohol) [facility] Utilities Answer Date Recorded In the past 12 months has e [employer], gas, oil, or water [employer] threatened to shut off services in your home? No 07/13/2023 Humiliation, Afraid, Rape, and Kick questionnair e Answer Date Recorded Within the last year, have y ou been afraid of your partner or ex-partner? No 06/15/2023 Within the last year, have y ou been humiliated or emotionally abused in other ways by your partner or ex-partner? No Within the last year, have y ou been kicked, hit, slapped, or otherwise physically hurt by your partner or ex-partner? No 06/15/2023 Within the last year, have y ou been raped or forced to have any kind of sexual activity by your partner or ex-partner? No 06/15/2023 Social Connection and Isolation Panel Answer Date Recorded In a typical week, how many times do you talk on the phone with family, friends, or neighbors? More than three times a week 07/13/2023 How often do you get togethe r with friends or relatives? More than three times a week 07/13/2023 How often do you attend chur ch or tenriism services? 1 to 4 times per year 07/13/2023 Do you belong to any clubs o r organizations such as advent groups, unions, fraternal or athletic groups, or school groups? No 07/13/2023 How often do you attend meet ings of the clubs or organizations you belong to? Never 07/13/2023 Are you , , di vorced, , never , or living with a partner? 07/13/2023 AUDIT-C Answer Date Recorded Q1: How often do you have a drink containing alcohol? Never 08/18/2023 Q2: How many drinks containi ng alcohol do you have on a typical day when you are drinking? Patient does not drink Q3: How often do you have si x or more drinks on one occasion? Never 08/18/2023 Overall Financial Resource Strain (CARDIA) Answe r Date Recorded How hard is it for you to pa y for the very basics like food, housing, medical care, and heating? Not hard at all 07/13/2023 PHQ-2 Answer Date Recorded PHQ-2 Total Score 3 07/13/2023 [facility] - Occupational Stress Questionnaire Answer Date Recorded Do you feel stress - tense, restless, nervous, or anxious, or unable to sleep at night because your mind is troubled all the time - these days? Not at all 06/15/2023 Exercise Vital Sign Answer Date Recorde d On average, how many days pe r week do you engage in moderate to strenuous exercise (like a brisk walk)? 0 days 06/15/2023 On average, how many minutes do you engage in exercise at this level? 0 min 06/15/2023 Hunger Vital Sign Answer Date Recorded Within the past 12 months, y ou worried that your food would run out before you got the money to buy more. Never true 08/18/19 24 Within the past 12 months, t he food you bought just didn't last and you didn't have money to get more. Never true 08/18/2023 PRAPARE - Transportation Answer Date Re corded In the past 12 months, has l ack of transportation kept you from medical appointments or from getting medications? No 10/2023 In the past 12 months, has l ack of transportation kept you from meetings, work, or from getting things needed for daily living? No 07/13/2023 Housing Stability Vital Sign Answer Gonzales e Recorded In the last 12 months, was t here a time when you were not able to pay the mortgage or rent on time? No 07/13/2023 In the last 12 months, how many places have you lived? 1 07/13/2023 In the last 12 months, was t here a time when you did not have a steady place to sleep or slept in a custodial (including now)? No 07/13/2023 PHQ-9 Answer Date Recorded PHQ-9 Total Score 7 07/13/2023 Personal Safety Answer Date Recorded Have you ever been in or are you currently in a harmful physical or emotional relationship or is someone making you feel afraid or unsafe? Denies 09/16/2023 Sex and Gender Information Value Date Recorded Sex Assigned at Not on file Legal Sex Male 4:21 PM STAMP CLASSIFIER Gender Identity Not on file Sexual Orientation Not on file Obstetrics History Last Filed Vital Signs Vital Sign Reading Time Taken Comments Blood Pressure 137/67 09/24/2023 10:28 AM CDT Pulse 87 09/24/2023 10:28 AM CDT Temperature 36.4 C (97.5 F) 09/24/2023 10:28 AM CDT Respiratory Rate 20 09/16/2023 8:43 PM CDT Oxygen Saturation 98% 09/24/2023 10:28 AM CDT Inhaled Oxygen Concentration - - Weight 82.1 kg (181 lb 1.6 oz) 08/18/2023 11:15 AM CDT Height 175.3 cm (5' 9) 08/18/2023 11:15 AM CDT Body Mass Index 26.74 08/18/2023 11:15 AM CDT Plan of Treatment Health Maintenance Due Date Last Done Comments Albumin Creatinine Ratio, Urine 1950 Colon Cancer Screening-Colonoscopy 1950 Hepatitis C Screening 1950 Dilated Eye Exam 1949 Foot Exam 1949 Lipid Panel 1949 DTaP/Tdap/Td Vaccine (1 - Tdap) 1960 Hepatitis B Screening 1967 Pneumococcal vaccine 65+ (1 of 2 - PCV) 1968 Zoster Vaccine (2 of 3) 03/31/2012 02/04/2012 Well Visit 65+ 2014 Hemoglobin A1C 12/11/2023 06/10/2023 Depression Screening 07/10/2024 07/11/2023, 07/11/19 24 Fall Risk Assessment 08/17/2024 08/18/2023 eGFR 09/15/2024 09/16/2023, 07/06, 07/16/2023, Additional history exists Influenza Vaccine (#1) 2024 9, 01/22/2018, 01/19/2014, Additional history exists Abdominal Aortic Aneurysm (A AA) Screen Completed 09/16/2023, 08/31/2023, 07/11/2023, Additional history exists Goals Goal Patient Goal Type Associated Problems Recent Progress Patient-Stated? Author CCM Chronic Pain Care Plan Chronic Care Management No change(04/19 7:41 AM STAMP CLASSIFIER) No Minor, Yenny Arguello RN Note: Problem: Chronic Pain Goals: 1. Minimize further functional decline 2. Maximize quality of life 3. Control pain Strategies: - Activity/exercise program recommendation - Conservative stepwise pain medicine strategy with multi-disciplinary approach - Recommend healthy lifestyle strategies and compensatory methods as needed Procedures Procedure Name Priority Date/Time Associated Diagnosis Comments CT ABDOMEN PELVIS WO CONTRAST ED 09/16/2023 4:10 PM CDT EGFR STAT 09/16/2023 2:45 PM CDT HEMOGLOBIN A1C Routine 06/10/2023 9:12 PM STAMP CLASSIFIER from Last 3 Months or Most Recently Relevant to Health Maintenance Results * CT Abdomen Pelvis WO Contrast (09/16/2023 4:10 PM CDT) Anatomical Region Laterality Modality Body N/A Computed Tomogra phy 09/16/2023 4:28 PM CDT Impressions 09/16/2023 4:54 PM CDT Interval removal of gastrostomy and jejunostomy tubes with near complete resolution of fluid collection adjacent to the proximal jejunum with minimal residual stranding of the mesentery and mild reactive enteritis in the proximal jejunum near this area. Minimal soft tissue thickening/stranding in the site of prior jejunostomy tube insertion. No drainable fluid collection in the abdomen or abdominal wall. Dictated by: Nadege Pastor MD The radiology attending physician has personally reviewed this study, and had reviewed and/or edited this written report and agrees with it. Electronically signed by: Jorge L Ray M.D. Narrative 09/16/2023 4:54 PM CDT EXAMINATION: Computed tomography of the abdomen and pelvis without intravenous contrast HISTORY: 73-year-old with history of small bowel perforation multiple laparotomies and prior gastrostomy and jejunostomy in place. TECHNIQUE: Transaxial computed tomographic images of the abdomen and pelvis were obtained without intravenous contrast according to the standard protocol. COMPARISON: CT on 07/11/2023 FINDINGS: Lungs are clear with no consolidation, effusion or pneumothorax. Normal heart size. Mild coronary calcifications. No pericardial effusion. Normal esophagus. Tiny hiatal hernia. Stable hypoattenuating hepatic segment 7 lesion. No suspicious liver lesion. Normal gallbladder. No biliary ductal dilatation. Normal spleen and bilateral adrenals. Normal pancreas. Interval removal of gastrostomy and jejunostomy tubes. There is near complete resolution of fluid collection adjacent to the proximal jejunum with minimal residual stranding of the mesentery in this region. Mild reactive enteritis in the proximal jejunum near this area. No drainable fluid. There is no evidence of small or large bowel obstruction. Colonic diverticula without diverticulitis. Normal caliber of the abdominal aorta. No ascites. No pneumoperitoneum. Periaortic lymphadenopathy and prominent mesenteric lymph nodes, unchanged compared to prior study and likely reactive. Midline laparotomy incision. Soft tissue thinking near the site of prior jejunostomy insertion. There is no drainable fluid collection. Findings of prior laparotomy with the tiny fat containing incisional hernia. Kidneys enhance symmetrically without stones or hydronephrosis. Normal bladder. Status post prostatectomy and pelvic lymph node dissection. Otherwise unremarkable pelvis. Bilateral small fat-containing inguinal hernias. Bilateral L5 pars defects with minimal L5 over S1 anterolisthesis. Degenerative changes in the lumbar spine. No aggressive osseous lesion. Procedure Note Jorge L Ray MD - 09/16/2023 EXAMINATION: Computed tomography of the abdomen and pelvis without intravenous contrast HISTORY: 73-year-old with history of small bowel perforation multiple laparotomies and prior gastrostomy and jejunostomy in place. TECHNIQUE: Transaxial computed tomographic images of the abdomen and pelvis were obtained without intravenous contrast according to the standard protocol. COMPARISON: CT on 07/11/2023 FINDINGS: Lungs are clear with no consolidation, effusion or pneumothorax. Normal heart size. Mild coronary calcifications. No pericardial effusion. Normal esophagus. Tiny hiatal hernia. Stable hypoattenuating hepatic segment 7 lesion. No suspicious liver lesion. Normal gallbladder. No biliary ductal dilatation. Normal spleen and bilateral adrenals. Normal pancreas. Interval removal of gastrostomy and jejunostomy tubes. There is near complete resolution of fluid collection adjacent to the proximal jejunum with minimal residual stranding of the mesentery in this region. Mild reactive enteritis in the proximal jejunum near this area. No drainable fluid. There is no evidence of small or large bowel obstruction. Colonic diverticula without diverticulitis. Normal caliber of the abdominal aorta. No ascites. No pneumoperitoneum. Periaortic lymphadenopathy and prominent mesenteric lymph nodes, unchanged compared to prior study and likely reactive. Midline laparotomy incision. Soft tissue thinking near the site of prior jejunostomy insertion. There is no drainable fluid collection. Findings of prior laparotomy with the tiny fat containing incisional hernia. Kidneys enhance symmetrically without stones or hydronephrosis. Normal bladder. Status post prostatectomy and pelvic lymph node dissection. Otherwise unremarkable pelvis. Bilateral small fat-containing inguinal hernias. Bilateral L5 pars defects with minimal L5 over S1 anterolisthesis. Degenerative changes in the lumbar spine. No aggressive osseous lesion. IMPRESSION: Interval removal of gastrostomy and jejunostomy tubes with near complete resolution of fluid collection adjacent to the proximal jejunum with minimal residual stranding of the mesentery and mild reactive enteritis in the proximal jejunum near this area. Minimal soft tissue thickening/stranding in the site of prior jejunostomy tube insertion. No drainable fluid collection in the abdomen or abdominal wall. Dictated by: Nadege Pastor MD The radiology attending physician has personally reviewed this study, and had reviewed and/or edited this written report and agrees with it. Electronically signed by: Jorge L Ray M.D. Luis Manuel Paige MD IM CT PROCEDURES Final Resul t * eGFR (09/16/2023 2:45 PM CDT) eGFR 66 >=60 mL/min/1. 73 m2 Comment: Interpretive Data Reference Interval Normal >/= 90 mL/min/1.73m2 Mildly decreased* 60 - 89 mL/min/1.73m2 Mildly to moderately decreased 45 - 59 mL/min/1.73m2 Moderately to severely decreased 30 - 44 mL/min/1.73m2 Severely decreased 15 - 29 mL/min/1.73m2 Kidney Failure < 15 mL/min/1.73m2 *Relative to young adult level Estimated glomerular filtration rate is determined by the 2020 CKD-EPI equation recommended by the National Kidney Foundation (A Unifying Approach to GFR Estimation: Recommendations of the NKF-ASK Task Force on Reassessing the Inclusion of Race in Diagnosing Kidney Disease, JASN 2020). The CKD-EPI equation should not be used for patients with unstable renal function and has not been validated in children and those over 70. Current interpretive data was last reviewed 2021. Blood 09/16/2023 2:45 PM CDT 09/16/2023 2:58 PM CDT Areli Clinton MD LAB BLOOD ORDERABLES Final Result Performing Organization Address [facility] de Phone Number [facility] [place] [address] * (ABNORMAL) Hemoglobin A1c (06/10/2023 9:12 PM STAMP CLASSIFIER) Hgb A1C 10.2(H) 4.0 - 5.6 % [facility] Estimated Average Glucose 246 mg/dL [facility] Comment: The ADA recommends reporting an estimated Average Glucose (eAG) with all Hemoglobin A1c results using the equation derived from a study of 507 normal and diabetic adults. Minority populations were underrepresented and children were not included. (Diabetes Care 2020; 43(S1): S66-S76). The eAG is not equivalent to a fasting glucose. Blood 06/10/2023 9:12 PM STAMP CLASSIFIER 06/10/2023 10:31 PM STAMP CLASSIFIER Franko Fragoso MD LAB BLOOD ORDERABLES Monica l Result Performing Organization Address [facility]/ZIP Co de Phone Number [facility] Department [place] [address] from Last 3 Months or Most Recently Relevant to Health Maintenance Insurance MEDICARE [facility] MEDICARE [place] [facility] [place] [address] MEDICARE [facility] Advance Directives For more information, please contact: [phone] * Full Code (Latest Code Status on File) Date Activated Date Inactivated Comments 08/18/2023 7:50 AM 08/19/2023 5:30 AM * Full Code Date Activated Date Inactivated Comments 07/29/2023 8:25 AM 07/30/2023 5:26 AM * Full Code Date Activated Date Inactivated Comments 07/12/2023 10:58 PM 07/18/2023 9:02 PM * Full Code Date Activated Date Inactivated Comments 07/12/2023 8:57 AM 07/12/2023 10:58 PM * Full Code Date Activated Date Inactivated Comments 06/09/2023 11:59 PM 06/28/2023 5:01 PM Healthcare Agents on File Name Relationship Healthcare Agent Relationshi p Communication Jaqui Rivers Spouse Health Care Agent Care Teams Field Spec Relationship Specialty Start Date End Date Cherie Sorenson MD PCP - General Family Medicine 11/15/22 Niles Aldana MD [address] [place] [address] Family Medicine 05/27/18 Dyana Cloud RN Registered Nurse 04/19/19
--- OUTSIDE RECORDS SUMMARY | 2025-01-23 12:38 | XMS_ITS | Clinical Summary ---
Author Organization [facility] Address [address] [place] [address] Care Team Providers Care Field Project Manager Name Role Phone Cherie Sorenson MD Primary Care Provider [phone] Source Comments [facility],non-owned Affiliates and Associated Physician Practices is amultiple site organization consisting of ambulatory clinics and hospital sitesin [place], [place], [place] and [place]. This disclosure is being madepursuant to the Care Everywhere program and may not contain all information available regarding this patient. Last updated 17.[facility] Secure Software Social History Tobacco Use Types Packs/Day Years Used Date Smoking Tobacco: Never Assessed Sex and Gender Information Value Date Recorded Sex Assigned at Not on file Legal Sex Male 9:38 AM CDT Gender Identity Not on file Sexual Orientation Not on file Plan of Treatment Health Maintenance Due Date Last Done Comments COLOGUARD (AGES 45-75) - COL ON CA SCREENING 1949 COLON MONITORING 1949 COLONOSCOPY - COLON CA SCREENING 1949 CT COLONOGRAPHY - COLON CA SCREENING 1950 Colorectal Cancer Screening 1949 FIT - COLON CA SCREENING 1949 FLEX SIG - COLON CA SCREENING 1949 LIPID TESTING 1950 MEDICARE AWV 12 MONTHS 1949 HEPATITIS C SCREENING 03/03/1967 DTAP/TDAP/TD VACCINES (1 - Tdap) 1968 PNEUMOCOCCAL VACCINE 50+ (1 of 1 - PCV) 1999 ZOSTER VACCINE (1 of 2) 1999 Respiratory Syncytial Virus (RSV) Vaccine Pt: or over 60 yrs (1 - 1-dose 75+ series) 2024 DEPRESSION SCREENING 04/07/2024 COVID-19 VACCINE (1 - 2023-2 5 season) 2024 INFLUENZA VACCINE (#1) 2024 HEPATITIS B VACCINE Aged Out No longe r eligible based on patient's age to complete this topic HIB VACCINE Aged Out No longer eligi ble based on patient's age to complete this topic HPV VACCINE Aged Out No longer eligi ble based on patient's age to complete this topic MENINGOCOCCAL (Group B) VACC INE SHARED DECISION-MAKING Aged Out No longer eligibl e based on patient's age to complete this topic MENINGOCOCCAL GROUPS A/C/Y/W VACCINE Aged Out No longer eligible b ased on patient's age to complete this topic Insurance MEDICARE [facility] Care Teams Field Project Manager Relationship Specialty Start Date End Date Cherie Sorenson MD [address] [place] [address] PCP - General Family Medicine 09/08/23
--- OUTSIDE RECORDS SUMMARY | 2025-01-23 12:38 | XMS_ITS ---
Author Organization [facility] Address [address] [facility] [address] [place] [address] Care Team Providers Care Human Resource Adviser Name Role Phone Niles Aldana MD Unavailable [phone] Dyana Cloud RN Unavailable Unavailab Cherie Reed MD Primary Care Provider [phone] Active Problems Problem Noted Date Diagnosed Date [...] Assessment & Plan (06/27/2023 3:34 PM CDT): OS Pathology Slides 06/13-06/14 attempted to obtain pathology slides from [facility]- [facility] in [facility] 06/15 Pathology at [facility] [place] reached out and is willing to send slides to our pathology department, Release of information faxed to [phone] with return address as below 06/26 Called Pathology department today; has NOT received slides yet; note, will not populate into Epic chart until slides are read and completed with final report. [facility] Pathology #[phone] ---Called [place] pathology department today. Per lab, they sent slides for second opinion at 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 Report shared with patient's PCP Ana Rosa. [facility], Pathology Department [address], [address] [place] [address] Septic shock 06/10/2023 Assessment & Plan (06/27/2023 [...] --- if [facility], ambulatory referral made to Endocrinology [...] 06/23 BG [id number], will follow Endocrine recommendations. 3/22 TF switched to nightly, 50% of needs [...] --- if patient prefers to f/u with [facility], ambulatory referral made to Endocrinology for glucose management and education resources Peritonitis 06/09/2023 Assessment & Plan (06/18/2023 9:59 AM CDT): See bowel perforation Bowel obstruction 06/09/2023 Bowel perforation 06/09/2023 Assessment & Plan (06/28/2023 8:19 AM CDT): OR 06/08 (Fouzia): ex-lap, feculent peritonitis, DAVY, no mass found, leak ?duodenum, temporary closure Closed temporarily; admitted to SICU on pressors and intubated 06/10: CT with [...] FLD yesterday. In AM, pt voiced flori madsen gastric bubble. G-tube placed to gravity, CLD for comfort, continue TFs at goal through J. Lactate wln. 06/22 G tube clamped, LORNA drain dc'd 06/23 TF per J-tube at goal. Tolerating a clear liquid diet. G-tube clamped. 06/24 G tube clamp 48 hrs, advance to soft diet 06/25 G tube clam 72 hours on soft diet, tube feed to dcrs by 04/08 do nocturnal only if tolerate go to [...] talita intact, pain controlled --- f/u [facility] 07/15 for post-op evaluation and possible G [...] 03/14/2021 Assessment & Plan (03/14/2021 10:59 AM BRAZER PRODUCTION LINE): He has an action/postural tremor noticeable over [...] pain 11/24/2018 Malignant neoplasm of prostate 08/27/2010 Current Treatment and Therapy Plans No current plan information found. Past Treatment and Therapy Plans No past plan information found. Lifetime Dose Tracking * Chemical Lifetime Dose Automatic Entry Manual Entr y Fluoro Time 20.623 minutes 20.623 minutes 0 minutes Air kerma at the reference point (Ka,r) 947.59 mGy 9 47.59 mGy 0 mGy DLP 4,943 mGycm 4,943 mGycm 0 mGycm
[2025-01-23 12:41] VITALS: BP 177/95; PULSE 83; RESP 16; TEMP 36.5; O2SAT 100
--- NOTE | 2025-01-23 13:03 | ED_ITS ---
HPI - Recheck/Abnormal Lab/Rx General Chief Complaint: Recheck/Abnormal Lab/Rx Stated Complaint: infected salivary gland Time Seen by Provider: 01/23/25 12:47 History of Present Illness HPI narrative: This is a 74-year-old male with history of diabetes, hypertension who presents to the ED for mild swelling. Patient states for the past 4-5 days, he has been having swelling underneath his tongue that is causing some difficulty swallowing. He states that is more painful than inability to swallow. States that he had a similar episode several years ago and was diagnosed with an infected salivary gland and got antibiotics that improved his symptoms very quickly. He states that he was seen in urgent care for this today and was advised to come to the ED for further evaluation. Denies fevers, chills, neck pain. Related Data Home Medications ?Medication ?Instructions ?Recorded ?Confirmed ?Last Taken ?Type insulin lispro 100 unit/mL See Rx Instructions .Route .COMPLEX 09/16/23 08/09/24 Unknown History subcutaneous pen (Humalog KwikPen (U-100) Insulin) Allergies Allergy/AdvReac Type Severity Reaction Status Date / Time diatrizoate meglumine Allergy Intermediate Unknown Verified 08/09/24 19:38 gadobenic acid (From Allergy Intermediate Rash Verified 01/23/25 11:25 contrast - MRI) iohexol (From contrast - CT, Allergy Intermediate Rash Verified 01/23/25 11:25 X-RAY) Contrast Media Allergy Unknown Hives / Uncoded 08/09/24 19:38 Red Face Review of Systems 2 Review of Systems: Gen.: Denies fevers or chills Eyes: Denies eye pain or visual change ENT: Denies congestion Respiratory: Denies shortness of breath or cough CV: Denies chest pain or palpitations GI: Denies abdominal pain nausea, emesis or diarrhea denies burning, urgency, frequency or hematuria Musculoskeletal: Denies back pain or muscle pain Neuro: Denies numbness, tingling, weakness or focal weakness Skin: Denies rash Except as documented, all other systems reviewed and negative [facility] Past Medical History Medical History Essential tremor Abdominal abscess Abdominal mass Back pain Saddle anesthesia Paresthesia and pain of both upper extremities Degenerative disk disease Overweight (BMI 25.0-29.9) Hypertension Diabetes type 2, controlled History of diverticulitis Diverticulosis Surgical History Surgical History History of carpal tunnel release Family History Family History Father Family history of diabetes mellitus in first degree relative Patient's father is Other Hypertension Social History Social History Smoking status: Former smoker Second hand tobacco smoke exposure: No Alcohol intake: current Drinks per week: 1 Alcohol use details: per week Substance use: never Substance use type: does not use Lack of Transportation: No Lack of Food: Never True Current Housing: I Have Housing Concerned About Future Housing: No Difficulty Paying Gas/Electric Bills: No Difficulty Paying for Meds: No Currently Unemployed: No Education: Associate Degree Difficulty w/ Childcare or Family Care: No Living arrangements: with family Gender identity (if verbalized by the patient): Male Sexual Orientation (if Verbalized by the Patient): Straight or Heterosexual Spiritual care concerns: No Agree to blood products: Yes Exam 2 Narrative: APPEARANCE: No acute distress, nontoxic, resting in bed EYES: EOMI HEENT: Normocephalic, atraumatic, OMM. There is a small focal area of swelling and to the floor of the right side of the mouth overlying the sublingual salivary duct that is tender to palpation RESPIRATORY: No respiratory distress CARDIOVASCULAR: Appears well perfused ABDOMINAL: Soft, nontender, nondistended, no rebound or guarding MUSCULOSKELETAl: Moves all extremities. No clubbing, cyanosis or edema. NEURO: Awake and alert. Following commands, speech normal, no focal deficits SKIN:: Warm, dry. No rashes lesions or abrasions PSYCHIATRIC: Normal affect/mood, Course Vital Signs Vital signs: Vital Signs Temperature 97.7 F 01/23/25 12:41 Pulse Rate 83 01/23/25 12:41 Respiratory Rate 16 01/23/25 12:41 Blood Pressure 177/95 H 01/23/25 12:41 Pulse Oximetry 100 01/23/25 12:41 Temperature 97.7 F 01/23/25 12:41 Pulse Rate 87 01/23/25 15:26 Respiratory Rate 16 01/23/25 15:26 Blood Pressure 155/90 H 01/23/25 15:26 Pulse Oximetry 98 01/23/25 15:26 MDM - Recheck/Abnormal Lab/Rx MDM Narrative Medical decision making narrative: 74-year-old male presenting for mouth swelling/pain. On initial evaluation, patient was in no acute distress afebrile, hemodynamically stable. He did have a nodule to the base of his right tongue With so she had tenderness to palpation. Given history of severe infection to this area in the distant past, CT scan was obtained. CT showed no evidence of abscess, did reveal what appeared to be a 4 mm sialolithiasis likely the source of his pain. I did try to express it but patient was unable to tolerate this. There was potentially some pus that was coming out so he will be covered with antibiotics as well. He was educated warm compresses and sialagogues. He was given a referral to ENT in the event that it does not improve in the next week. Patient was agreeable to this plan. Given strict return precautions. Patient also noted to be hyperglycemic, he was advised to take additional insulin at home as previously instructed. Differential Diagnosis Differential diagnosis: Likely other (keyshawn's angina, abscess, sialolithiasis, sialoadenitis) Medical Records Attestation: I reviewed the patient's medical records. Lab Data Attestation: I reviewed the patient's lab results. 01/23/25 13:00 01/23/25 13:00 Labs: Lab Results 01/23/25 Range/Units 13:00 WBC 7.7 (4.5-10.0) K/mm3 RBC 4.84 (4.6-6.20) M/mm3 Hgb 13.7 L (14.0-18.0) g/dL Hct 41.8 L (42.0-52.0) % MCV 86.4 (80-100) fl MCH 28.3 (26-34) pg MCHC 32.8 (32-36) g/dl RDW 14.2 (11.5-14.5) % Plt Count 142 L (150-375) k/mm3 MPV 10.3 (7.4-10.4) fl Immature Gran % (Auto) 0.3 (0-0.5) % Neut % (Auto) 76.4 H (45.5-73.1) % Lymph % (Auto) 13.0 L (18.3-44.2) % [place] % (Auto) 7.0 (2.6-8.5) % Eos % (Auto) 2.9 (0-4.4) % Baso % (Auto) 0.4 (0.2-1.2) % Lymph # (Auto) 1.00 (0.9-3.2) K/mm3 [place] # (Auto) 0.5 (0.1-0.6) K/mm3 Eos # (Auto) 0.2 (0-0.3) K/mm3 Baso # (Auto) 0.0 (0.0-0.1) K/mm3 Abs Immat Gran (auto) 0.02 (0.00-0.031) K/mm3 Absolute Neuts (auto) 5.9 (1.3-6.7) K/mm3 Absolute Nucleated RBC 0.000 (0.0-0.012) K/mm3 Nucleated RBC % 0.0 (0.0-0.2) % Sodium 133 L (137-145) mmol/L Potassium 4.5 (3.4-5.0) mmol/L Chloride 96 L (98-107) mmol/L Carbon Dioxide 27 (22-30) mmol/L Anion Gap 10 (4-12) mmol/L BUN 30 H (9-20) mg/dL Creatinine 1.46 H (0.7-1.3) mg/dL Estim Creat Clear Calc 45 ml/min Estimated GFR 47 L (59 - ) Glucose 452 H (65-110) mg/dL Calcium 9.7 (8.4-10.2) mg/dL Total Bilirubin 1.1 (0.2-1.3) mg/dL AST 27 (17-59) U/L ALT 24 (6-50) U/L Alkaline Phosphatase 79 (38-126) U/L Total Protein 7.4 (6.3-8.2) g/dL Albumin 4.2 (3.5-5.1) g/dL Imaging Data Attestation: I personally reviewed and interpreted this imaging study as follows: My impression: CT soft tissue neck: 4.3mm right sublingual salivary stone without any signs of surrounding infection Radiologist's impression: Impressions Soft Tissue Neck CT 01/23/25 14:54 IMPRESSION: No abscess identified. Incidental findings above Discharge Plan Discharge Clinical Impression: Sublingual sialolithiasis, Acute hyperglycemia Patient Disposition: Home Condition: Stable Instructions: Antibiotic Form Additional Instructions: Please drink plenty of water. Apply moist heat to the area of the stone. Besides the gland, refer to picture to help note the stone out. Try sucking on sour candies as needed to help push the stone out as well. You may take Tylenol and ibuprofen for pain. You were given a prescription for Keflex, take this as prescribed. You were given a referral to Dr. Pena, ENT, to follow up if your symptoms do not improve in the next week. Return to the ED for any new or worsening symptoms. Patient Language: Macanese Prescriptions: New cephalexin 500 mg capsule 500 mg PO Q12H 7 Days Qty: 14 0RF No Action insulin lispro [Humalog KwikPen Insulin] 100 unit/mL insulin pen See Rx Instructions .ROUTE .COMPLEX Rx Instructions: use as directed rosuvastatin 10 mg tablet 10 mg PO DAILY Qty: 90 3RF metformin 500 mg tablet 1,000 mg PO BIDWMEAL Qty: 360 3RF insulin glargine [Lantus Solostar U-100 Insulin] 100 unit/mL (3 mL) insulin pen 40 unit SUBCUT BID Qty: 75 3RF (DME) pen needle, diabetic 32 gauge x 5/16 needle See Rx Instructions .Route Qty: 300 12RF Rx Instructions: Use daily for Lantus and TID before meals lisinopril-hydrochlorothiazide 10-12.5 mg tablet 1 tablet PO DAILY Qty: 90 3RF primidone 50 mg tablet 50 mg PO BID Qty: 180 1RF escitalopram oxalate 10 mg tablet 10 mg PO DAILY Qty: 90 1RF Follow-up/Referrals: Tiffani,RAHUL Albarran [Primary Care Provider, Unknown]
[2025-01-23] MEDS: SODIUM CHLORIDE 0.9% IV 1,000 ML 999 ML IV CONT (13:05)
[2025-01-23 13:08] LABS: Hematocrit 41.8 % (42.0-52.0); Hemoglobin 13.7 g/dL (14.0-18.0); Immature Granulocyte Percent A 0.3 % (0-0.5); Lymphocytes Absolute Auto 1.00 K/mm3 (0.9-3.2); Mean Corpuscular HGB Conc 32.8 g/dl (32-36); Mean Corpuscular Hemoglobin 28.3 pg (26-34); Mean Corpuscular Volume 86.4 fl (80-100); Nucleated Red Blood Cells Absolute Auto 0.000 K/mm3 (0.0-0.012); Nucleated Red Blood Cells Perc 0.0 % (0.0-0.2); Platelet Count Result 142 k/mm3 (150-375); Red Blood Count 4.84 M/mm3 (4.6-6.20); White Blood Count 7.7 K/mm3 (4.5-10.0)
[2025-01-23 13:14] VITALS: BP 160/93; PULSE 85; RESP 14; O2SAT 96
[2025-01-23 13:18] LABS: Alanine Aminotransferase 24 U/L (6-50); Albumin Level 4.2 g/dL (3.5-5.1); Alkaline Phosphatase 79 U/L (38-126); Anion Gap 10 mmol/L (4-12); Aspartate Amino Transferase 27 U/L (17-59); Bilirubin,Total 1.1 mg/dL (0.2-1.3); Blood Urea Nitrogen 30 mg/dL (9-20); Calcium 9.7 mg/dL (8.4-10.2); Carbon Dioxide 27 mmol/L (22-30); Chloride 96 mmol/L (98-107); Estimated CRCL calculation 45 ml/min; Estimated Glomerular Filt Rate 47; Glucose 452 mg/dL (65-110); Potassium 4.5 mmol/L (3.4-5.0); Sodium 133 mmol/L (137-145); Total Protein 7.4 g/dL (6.3-8.2)
--- OUTSIDE RECORDS SUMMARY | 2025-01-23 13:19 | XMS_ITS ---
Author Organization [facility] 2 Address [address] [place] [address] Care Team Providers Care Finish Production Manager Name Role Phone Niles Aldana MD Unavailable [phone] Dyana Cloud RN Unavailable Unavailab Cherie Reed MD Primary Care Provider [phone] Active Problems Problem Noted Date Diagnosed Date [...] attempted to obtain pathology slides from [facility] in [facility] 06/15 Pathology at [facility] reached out and is willing to send slides to our pathology department, Release of information faxed to [phone] with return address as below 06/26 Called Pathology department today; has NOT received slides yet; note, will not populate into Epic chart until slides are read and completed with final report. Direct [facility] Pathology #[phone] ---Called [place] pathology department today. 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 Report shared with patient's PCP Ana Rosa. [facility], Pathology Department [address], [address] [place] [address] Septic shock 06/10/2023 Assessment & Plan (06/27/2023 [...] --- if [facility], ambulatory referral made to Endocrinology for [...] --- if patient prefers to f/u with [facility], ambulatory referral made to Endocrinology for [...] talita intact, pain controlled --- f/u [facility] 07/15 for post-op evaluation and possible G [...] 03/14/2021 Assessment & Plan (03/14/2021 10:59 AM SODA JERKER): He has an action/postural tremor noticeable over [...]
--- OUTSIDE RECORDS SUMMARY | 2025-01-23 13:20 | XMS_ITS | Encounter Summary ---
Author Organization [facility] Healthcare Address [address] [place] [address] Care Team Providers Care Casting Machine Control Board Operator Name Role Phone Niles Aldana MD Primary Care Provider [phone] Niles Aldana MD Unavailable [phone] Dyana Cloud RN Unavailable Unavailab Lucas Hinton MD Primary Care Provider + Cherie Sorenson MD Primary Care Provider [phone] Reason for Visit * Reason Onset Date Comments Prior Auth 12/09/2018 Nortriptyline Ap proved Encounter Details Date Type Department Care Team (Late st Contact Info) Description 12/09/2018 Telephone [facility] [address] [place] [address] Daniel Brock MD [address] [place] [address], [place] [id number] Prior Auth (Nortriptyline Approved) Social History Tobacco Use Types Packs/Day Years Used Date Smoking Tobacco: Former Cigarettes Q uit: 1997 Smokeless Tobacco: Never Alcohol Use Standard Drinks/Week Comments No 0 (1 standard drink = 0.6 oz pur e alcohol) Sex and Gender Information Value Date Recorded Sex Assigned at Not on file Legal Sex Male 4:21 PM TAKER DOWN Gender Identity Not on file Sexual Orientation Not on file documented as of this encounter Plan of Treatment Not on file documented as of this encounter Goals Goal Patient Goal Type Associated Problems Recent Progress Patient-Stated? Author CCM Chronic Pain Care Plan Chronic Care Management No change(04/19 7:41 AM TAKER DOWN) No Efra, Yenny Arguello RN Note: Problem: [...] C. difficile suspected 06/14/2023 06/14/202306/13 11:46 AM TAKER DOWN documented as of this encounter Care Teams Casting Machine Control Board Operator Relationship Specialty Start Date End Date Niles Aldana MD [address] [place] [address] PCP - General 05/27/18 12/25/20 Lucas Soares MD [facility] [place] [address] PCP - General Internal Medicine 12/26/20 11/14/22 Cherie Sorenson MD [address] [place] [address] PCP - General Family Medicine 11/15/22 Niles Aldana MD [address] [place] [address] Family Medicine 05/27/18 Dyana Cloud RN Registered Nurse 04/19/19 documented as of this encounter
--- OUTSIDE RECORDS SUMMARY | 2025-01-23 13:20 | XMS_ITS | Clinical Summary ---
Author Organization [facility] Address [address] [facility] [place] [address] Care Team Providers Care Sap Fico Architect Name Role Phone Cherie Sorenson MD Primary Care Provider [phone] Source Comments [facility],non-owned Affiliates and Associated Physician Practices is amultiple site organization consisting of ambulatory clinics and hospital sitesin [place], [place] and [place]. This disclosure is being madepursuant to the Care Everywhere program and may not contain all information available regarding this patient. Last updated 17.[facility] [employer] Social History Tobacco Use Types Packs/Day Years [...] age to complete this topic Insurance MEDICARE [facility] Care Teams Sap Fico Architect Relationship Specialty Start Date End Date Cherie Sorenson MD [address] [place] [address] PCP - General Family Medicine 09/08/23
--- OUTSIDE RECORDS SUMMARY | 2025-01-23 13:20 | XMS_ITS | Encounter Summary ---
Author Organization [facility] Address [address] [facility] [facility] [place] [address] Care Team Providers Care Cut Off Saw Tender Metal Name Role Phone Cherie Sorenson MD Primary Care Provider [phone] Encounter Details Date Type Department Care Team (Late st Contact Info) Description 04/29/2024 Lab Requisition [facility] - DermPath Lab [address] [facility], [facility] [place] [id number] Tricia Rothman MD [address] [place] [address] Social History Tobacco Use Types Packs/Day Years [...] Comments DERMATOPATHOLOGY Routine 04/29/2024 11:3 3 AM REED POLISHER documented in this encounter Results * DERMATOPATHOLOGY (04/29/2024 11:33 AM REED POLISHER) Case Report Dermatopathology Report Case: [id number] Authorizing Provider: Tricia Rothman MD Collected: 04/29/2024 11:33 AM Ordering Location: [facility] - Received: 04/30/2024 01:25 PM DermPath Lab Pathologist: Megha Hughes MD Specimen: Skin, left bottom lip 1:20 PM REED POLISHER DERMATOPATHOLOGY LABORATORY Addendum 1 HSV immunostain is negative. 1:20 PM REED POLISHER DERMATOPATHOLOGY LABORATORY Addendum electronically signed by Megha Hughes MD on 05/06/2024 at 1320 REED POLISHER Final Diagnosis Specimen A. 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 The specimen consists of a shave biopsy measuring 11x6x1 mm. Jar 0. 1:20 PM [facility] [[email or web address]] DERMATOPATHOLOGY LABORATORY Microscopic Description Specimen A. SKIN, [...] results reported in an addendum. 1:20 PM [facility] [[email or web address]] DERMATOPATHOLOGY LABORATORY Disclaimer An external and internal positive and negative controls are appropriate for the histochemical, immunohistochemical and immunofluorescence stain(s) in this case (if any), except where stated explicitly. The performance characteristics of the stain(s) cited in this report were developed and its performance characteristic determined by the Dermatopathology Laboratory at [facility], directed by Dr. Kitty Ba. These tests need not be, and therefore are not, approved by the [place] Food and Drug Administration. The tests are used for clinical purposes. Billing Codes Specimen Charges Stain Charges 90364 1 48407 57066 1 1 1:20 PM REED POLISHER DERMATOPATHOLOGY LABORATORY Embedded Images 1:20 PM REED POLISHER DERMATOPATHOLOGY LABORATORY Pathology/Cytolo gy TISSUE SPECIMEN FROM SKIN / Unknown 04/29/2024 11:33 AM REED POLISHER 04/30/2024 1:25 PM REED POLISHER Tricia Rothman MD LAB - PATHOLOGY/CYTOLOGY ORD ERABLES Edited Result - Final DERMATOPATHOLOGY LABORATORY [facility] - Department of Dermatology [facility] [address] [place] [address], [address] [phone] documented in this encounter Visit Diagnoses Not on filedocumented in this encounter Care Teams Cut Off Saw Tender Metal Relationship Specialty Start Date End Date Cherie Sorenson MD [address] [place] [address] PCP - General Family Medicine 09/08/23 documented as of this encounter
--- OUTSIDE RECORDS SUMMARY | 2025-01-23 13:20 | XMS_ITS | Clinical Summary ---
Author Organization [facility] Address [address] [facility] [place] [address] Care Team Providers Care Immersion Metal Cleaner Name Role Phone Niles Aldana MD Unavailable [phone] Dyana Cloud RN Unavailable Unavailab Cherie Reed MD Primary Care Provider [phone] Allergies Active Allergy Reactions Criticality Noted Date [...] attempted to obtain pathology slides from OSH- [facility] 06/15 Pathology at [facility] reached out and is willing to send slides to our pathology department, Release of information faxed to [phone] with return address as below 06/26 Called Pathology department today; has NOT received slides yet; note, will not populate into Epic chart until slides are read and completed with final report. [facility] #[phone] ---Called [place] pathology department today. 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 Report shared with patient's PCP Ana Rosa. [facility], Pathology Department [address], [address] [place] [address] Septic shock 06/10/2023 Assessment & Plan (06/27/2023 [...] --- if patient prefers to f[facility] with [facility], ambulatory referral made to Endocrinology for [...] --- if patient prefers to f/u with [facility], ambulatory referral made to Endocrinology for glucose management and education resources Peritonitis 06/09/2023 Assessment & Plan (06/18/2023 9:59 AM CDT): See bowel perforation Bowel obstruction 06/09/2023 Bowel perforation 06/09/2023 Assessment & Plan (06/28/2023 8:19 AM CDT): OR 3/4 (Fouzia): ex-lap, feculent peritonitis, DAVY, no mass found, leak ?duodenum, temporary closure Closed temporarily; [facility]/10: CT with [...] talita intact, pain controlled --- f/u [facility] 07/15 for post-op evaluation and possible [...] 03/14/2021 Assessment & Plan (03/14/2021 10:59 AM TIP FINISHER): He has an action/postural tremor noticeable over [...] e alcohol) [facility] Utilities Answer Date Recorded In the past 12 months has e [employer], gas, oil, or water [employer] threatened to shut off services in your [...] often do you attend chur ch or yazidism services? 1 to 4 times per year 07/13/2023 Do you belong to any clubs o r organizations such as restorationism groups, unions, fraternal or athletic groups, or [...] Date Recorded PHQ-2 Total Score 3 07/13/2023 [facility] - [...] place to sleep or slept in a senior care (including now)? No 07/13/2023 PHQ-9 Answer Date Recorded PHQ-9 Total Score 7 07/13/2023 Personal Safety Answer Date Recorded Have you ever been in or are you currently in a harmful physical or emotional relationship or is someone making you feel afraid or unsafe? Denies 09/16/2023 Sex and Gender Information Value Date Recorded Sex Assigned at Not on file Legal Sex Male 4:21 PM TIP FINISHER Gender Identity Not on file Sexual Orientation [...] Chronic Care Management No change(04/19 7:41 AM TIP FINISHER) No Minor, Yenny Arguello RN Note: Problem: [...] CDT HEMOGLOBIN A1C Routine 06/10/2023 9:12 PM TIP FINISHER from Last 3 Months or Most Recently [...] BLOOD ORDERABLES Final Result Performing Organization Address [facility] de Phone Number [facility] [place] [address] * (ABNORMAL) Hemoglobin A1c (06/10/2023 9:12 PM TIP FINISHER) Hgb A1C 10.2(H) 4.0 - 5.6 % [facility] Estimated Average Glucose 246 mg/dL [facility] Comment: The ADA recommends reporting an estimated Average Glucose (eAG) with all Hemoglobin A1c results using the equation derived from a study of 507 normal and diabetic adults. Minority populations were underrepresented and children were not included. (Diabetes Care 2020; 43(S1): S66-S76). The eAG is not equivalent to a fasting glucose. Blood 06/10/2023 9:12 PM TIP FINISHER 06/10/2023 10:31 PM TIP FINISHER Franko Fragoso MD LAB BLOOD ORDERABLES Monica l Result Performing Organization Address [facility]/ZIP Co de Phone Number [facility] Department [place] [address] from Last 3 Months or Most Recently Relevant to Health Maintenance Insurance MEDICARE [facility] MEDICARE [place]ARE [place] [facility] [place] [address] MEDICARE [facility] Advance Directives For more information, please contact: [phone] * Full Code (Latest Code Status on [...] Rivers Spouse Health Care Agent Care Teams Immersion Metal Cleaner Relationship Specialty Start Date End Date Cherie Sorenson MD PCP - General Family Medicine 11/15/22 Niles Aldana MD [address] [place] [address] Family Medicine 05/27/18 Dyana Cloud RN Registered Nurse 04/19/19
--- OUTSIDE RECORDS SUMMARY | 2025-01-23 13:20 | XMS_ITS | Clinical Summary ---
Author Organization [facility] Address [address] [place] [address] Care Team Providers Care Tomographic Tech Name Role Phone Unavailable Primary Care Provider [...] Description 01/31/2025 10:20 AM CDT Office Visit [facility] - [facility] [address] [facility], [address] [place] [phone] Susanna Jerome MD [address] [facility] [place] [address] [place] [address] Health Maintenance Due Date Last Done Comments [...] age to complete this topic Insurance MEDICARE [facility]
[2025-01-23] MEDS: CEPHALEXIN 500 MG CAPSULE PO (14:47)
[2025-01-23 15:26] VITALS: BP 155/90; PULSE 87; RESP 16; O2SAT 98
== END 2025-01-23 15:27 | disposition home or self-care (01) ==
PROVIDERS: Emergency Provider Student in an Organized Health Care Education/Training Program; PCP Physician Assistant
DX: K11.5 Sialolithiasis (principal); E11.65 Type 2 diabetes mellitus with hyperglycemia; I10 Essential (primary) hypertension; Z87.891 Personal history of nicotine dependence; Z79.4 Long term (current) use of insulin; Z79.84 Long term (current) use of oral hypoglycemic drugs; Z79.899 Other long term (current) drug therapy
CPT/HCPCS: 36415; 70491; 80053; 85025; 96361; 96374; 96375; 99284; A9270; J1200; J2919; J7030; Q9967

== ENCOUNTER 2025-02-10 08:15 | Outpatient (CLI) | payer MEDICARE, SELFPAY ==
--- NOTE | ~2025-02-10 | MR_ITS ---
EXAMINATION: MR cervical spine wo con DATE: 02/10/2025 09:10 INDICATION: Cervical radiculopathy TECHNIQUE: Magnetic resonance imaging (MRI) of the cervical spine was performed without intravenous contrast. Sequences included sagittal T2-weighted FSE, sagittal T2-weighted FS FSE, sagittal T1-weighted FSE, axial MERGE and axial T2- weighted FSE. COMPARISON: CT dated 01/23/2025 FINDINGS: Bone alignment is normal. Vertebral body heights are normal. Bone marrow signal intensity is normal. Moderate disc height loss at C6-C7, mild disc height loss at C2-C3, C4-C5 and C5-C6. There are annular fissures at each of these levels as well as at C3-C4. There are small posterior endplate osteophytes at several levels which will be further detailed below as well as some ossification along the posterior longitudinal ligament at C3. Cord signal intensity is normal. Cervical soft tissues are unremarkable. The following disc levels are specifically discussed: C2-C3: Central posterior disc osteophyte complex. There is mild bilateral uncovertebral joint osteoarthritis. There is mild bilateral facet joint osteoarthritis. There is no neural foraminal stenosis. There is mild central canal stenosis. C3-C4: Posterior disc osteophyte complex which mildly indents the central ventral surface of the cord. There is mild right and moderate left uncovertebral joint osteoarthritis. There is mild left and minimal right facet joint osteoarthritis. There is mild left neural foraminal stenosis. There is mild c entral canal stenosis. C4-C5: Posterior disc osteophyte complex which is subtly flattens the ventral surface of the cord. There is mild bilateral uncovertebral joint osteoarthritis. There is mild right and moderate left facet joint osteoarthritis. There is mild bilateral neural foraminal stenosis. There is mild central canal stenosis. C5-C6: Posterior disc osteophyte complex. There is mild bilateral uncovertebral joint osteoarthritis. There is mild bilateral facet joint osteoarthritis. There is minimal bilateral neural foraminal stenosis. There is mild central canal stenosis. C6-C7: Posterior disc osteophyte complex. There is moderate left and severe right uncovertebral joint osteoarthritis. There is mild bilateral facet joint osteoarthritis. There is mild left and moderate right neural foraminal stenosis. There is mild central canal stenosis. C7-T1: Disc is minimally bulging. There is mild bilateral uncovertebral joint osteoarthritis. There is mild to moderate right and moderate left facet joint osteoarthritis. There is mild left neural foraminal stenosis. There is no central canal stenosis. IMPRESSION: 1. Mild to moderate cervical spondylosis. Reviewed, dictated and finalized at location A. SURANCE CLAIM ANALYST
--- NOTE | ~2025-02-10 | US_ITS ---
Clinical history:Multiple thyroid nodules EXAM:Ultrasound thyroid TECHNIQUE:Multiple static grayscale and color Doppler images were obtained of the thyroid gland. Comparisons:CT soft tissues of the neck 01/23/2025 FINDINGS: Right thyroid lobe measures 4.5 x 2.7 x 2.8 cm and is heterogeneous. The thyroid lobe measures 5.5 x 1.9 x 1.9 cm and is heterogeneous. Isthmus measures 0.4 cm and is heterogeneous. There is a 2.1 x 1.5 1.4 cm calcification in the right thyroid lobe. TR2 There is a 3.6 x 2.4 x 3.0 cm nodule in the right inferior thyroid lobe with a few echogenic foci likely calcifications. The finding is solid and taller than wide. TR 5. A fine-needle aspiration is recommended. There are a few less than 7 mm TR 2 lesion in the left thyroid lobe. IMPRESSION: 1.There is a 3.6 x 2.4 x 3.0 cm nodule in the right inferior thyroid lobe with a few echogenic foci likely calcifications. The finding is solid and taller than wide. TR 5. A fine-needle aspiration is recommended. 2. Thyroid gland is enlarged and heterogeneous. Consider a thyroid scan to assess for a cold nodule to determine the need for additional fine-needle aspirations. Reviewed, dictated and finalized at location Q. RNATIONAL LOGISTICS MANAGER IMPRESSION: 1.There is a 3.6 x 2.4 x 3.0 cm nodule in the right inferior thyroid lobe with a few echogenic foci likely calcifications. The finding is solid and taller patricia n wide. TR 5. A fine-needle aspiration is recommended. 2. Thyroid gland is enlarged and heterogeneous. Consider a thyroid scan to asse ss for a cold nodule to determine the need for additional fine-needle aspiratio ns.
== END 2025-02-10 08:16 | disposition home or self-care (01) ==
PROVIDERS: PCP Physician Assistant; Visit Provider Physician Assistant
DX: M43.02 Spondylolysis, cervical region (principal); E04.2 Nontoxic multinodular goiter; Z87.891 Personal history of nicotine dependence
CPT/HCPCS: 72141; 76536